=== PATIENT | male | born 1940 | race Caucasian/White ===

== ENCOUNTER 2016-12-18 08:33 | Outpatient (CLI) | payer MEDICARE, OTHER ==
[2015-11-12 17:13] VITALS: BP 127/62
== END 2016-12-18 08:35 ==
LOC: LAB 08:33
PROVIDERS: ATTEND Internal Medicine Cardiovascular Disease
DX: Z51.81 Encounter for therapeutic drug level monitoring (principal); Z79.01 Long term (current) use of anticoagulants; I48.2 Chronic atrial fibrillation
CPT/HCPCS: 36415; 85610

== ENCOUNTER 2017-01-16 08:10 | Outpatient (CLI) | payer MEDICARE, OTHER ==
[2015-11-12 17:13] VITALS: BP 127/62
== END 2017-01-16 08:11 ==
LOC: LAB 08:10
PROVIDERS: ATTEND Internal Medicine Cardiovascular Disease
DX: Z51.81 Encounter for therapeutic drug level monitoring (principal); Z79.01 Long term (current) use of anticoagulants; I48.91 Unspecified atrial fibrillation
CPT/HCPCS: 36415; 85610

== ENCOUNTER 2017-01-21 08:25 | Outpatient (CLI) | payer MEDICARE, OTHER ==
[2015-11-12 17:13] VITALS: BP 127/62
== END 2017-01-21 08:26 ==
LOC: LAB 08:25
PROVIDERS: ATTEND Internal Medicine Cardiovascular Disease
DX: I48.0 Paroxysmal atrial fibrillation (principal)
CPT/HCPCS: 36415; 85610

== ENCOUNTER 2017-02-05 08:08 | Outpatient (CLI) | payer MEDICARE, OTHER ==
[2015-11-12 17:13] VITALS: BP 127/62
== END 2017-02-05 08:10 ==
LOC: LAB 08:08
PROVIDERS: ATTEND Internal Medicine Cardiovascular Disease
DX: I48.0 Paroxysmal atrial fibrillation (principal)
CPT/HCPCS: 36415; 85610

== ENCOUNTER 2017-02-11 08:41 | Outpatient (CLI) | payer MEDICARE, OTHER ==
[2015-11-12 17:13] VITALS: BP 127/62
== END 2017-02-11 08:42 ==
LOC: LAB 08:41
PROVIDERS: ATTEND Internal Medicine Cardiovascular Disease
DX: Z51.81 Encounter for therapeutic drug level monitoring (principal); Z79.01 Long term (current) use of anticoagulants; I48.0 Paroxysmal atrial fibrillation
CPT/HCPCS: 36415; 85610

== ENCOUNTER 2017-02-25 07:18 | Outpatient (CLI) | payer MEDICARE, OTHER ==
[2015-11-12 17:13] VITALS: BP 127/62
[2017-02-25 08:29] LABS: eGFR (African) 42; eGFR (Non-African) 35
== END 2017-02-25 07:20 ==
LOC: LAB 07:18
PROVIDERS: ATTEND Internal Medicine Cardiovascular Disease
DX: E11.65 Type 2 diabetes mellitus with hyperglycemia (principal); N18.3 Chronic kidney disease, stage 3 (moderate); I50.9 Heart failure, unspecified; E78.2 Mixed hyperlipidemia; I12.9 Hypertensive chronic kidney disease with stage 1 through stage 4 chronic kidney disease, or unspecified chronic kidney disease; I25.10 Atherosclerotic heart disease of native coronary artery without angina pectoris; I10 Essential (primary) hypertension; E03.9 Hypothyroidism, unspecified; Z90.5 Acquired absence of kidney
CPT/HCPCS: 36415; 80053; 80061; 85610

== ENCOUNTER 2017-03-11 07:54 | Outpatient (CLI) | payer MEDICARE, OTHER ==
[2015-11-12 17:13] VITALS: BP 127/62
== END 2017-03-11 07:55 ==
LOC: LAB 07:54
PROVIDERS: ATTEND Internal Medicine Cardiovascular Disease
DX: E11.65 Type 2 diabetes mellitus with hyperglycemia (principal); N18.3 Chronic kidney disease, stage 3 (moderate); I50.9 Heart failure, unspecified
CPT/HCPCS: 36415; 85610

== ENCOUNTER 2017-03-26 09:19 | Outpatient (CLI) | payer MEDICARE, OTHER ==
[2015-11-12 17:13] VITALS: BP 127/62
== END 2017-03-26 09:20 ==
LOC: LAB 09:19
PROVIDERS: ATTEND Internal Medicine Cardiovascular Disease
DX: E11.65 Type 2 diabetes mellitus with hyperglycemia (principal); E11.22 Type 2 diabetes mellitus with diabetic chronic kidney disease; N18.3 Chronic kidney disease, stage 3 (moderate); I12.9 Hypertensive chronic kidney disease with stage 1 through stage 4 chronic kidney disease, or unspecified chronic kidney disease; I25.10 Atherosclerotic heart disease of native coronary artery without angina pectoris; I10 Essential (primary) hypertension; E03.9 Hypothyroidism, unspecified
CPT/HCPCS: 36415; 85610

== ENCOUNTER 2017-04-09 10:43 | Outpatient (CLI) | payer MEDICARE, OTHER ==
[2015-11-12 17:13] VITALS: BP 127/62
== END 2017-04-09 10:44 ==
LOC: LAB 10:43
PROVIDERS: ATTEND Internal Medicine Cardiovascular Disease
DX: Z51.81 Encounter for therapeutic drug level monitoring (principal); Z79.01 Long term (current) use of anticoagulants; I48.0 Paroxysmal atrial fibrillation
CPT/HCPCS: 36415; 85610

== ENCOUNTER 2017-05-09 08:28 | Outpatient (CLI) | payer MEDICARE, OTHER ==
[2015-11-12 17:13] VITALS: BP 127/62
== END 2017-05-09 08:30 ==
LOC: LAB 08:28
PROVIDERS: ATTEND Internal Medicine Cardiovascular Disease
DX: I48.0 Paroxysmal atrial fibrillation (principal)
CPT/HCPCS: 36415; 85610

== ENCOUNTER 2017-05-23 08:21 | Outpatient (CLI) | payer MEDICARE, OTHER ==
[2015-11-12 17:13] VITALS: BP 127/62
== END 2017-05-23 08:31 ==
LOC: LAB 08:21
PROVIDERS: ATTEND Internal Medicine Cardiovascular Disease
DX: I48.0 Paroxysmal atrial fibrillation (principal)
CPT/HCPCS: 36415; 85610

== ENCOUNTER → 2017-06-06 | Outpatient (CLI) | payer MEDICARE, OTHER ==
[2015-11-12 17:13] VITALS: BP 127/62
== END ==
LOC: LAB 07:20
PROVIDERS: ATTEND Internal Medicine Cardiovascular Disease
DX: I48.0 Paroxysmal atrial fibrillation (principal)
CPT/HCPCS: 36415; 85610

== ENCOUNTER 2017-06-27 08:36 | Outpatient (CLI) | payer MEDICARE, OTHER ==
[2015-11-12 17:13] VITALS: BP 127/62
== END 2017-06-27 08:37 ==
LOC: LAB 08:36
PROVIDERS: ATTEND Internal Medicine Cardiovascular Disease
DX: I48.0 Paroxysmal atrial fibrillation (principal)
CPT/HCPCS: 36415; 85610

== ENCOUNTER 2017-07-11 09:45 | Outpatient (CLI) | payer MEDICARE, OTHER ==
[2015-11-12 17:13] VITALS: BP 127/62
== END 2017-07-11 09:55 ==
LOC: LAB 09:45
PROVIDERS: ATTEND Internal Medicine Cardiovascular Disease
DX: Z79.01 Long term (current) use of anticoagulants (principal)
CPT/HCPCS: 36415; 85610

== ENCOUNTER 2017-07-31 07:44 | Outpatient (CLI) | payer MEDICARE, OTHER ==
[2015-11-12 17:13] VITALS: BP 127/62
== END 2017-07-31 07:45 ==
LOC: LAB 07:44
PROVIDERS: ATTEND Internal Medicine Cardiovascular Disease
DX: Z79.01 Long term (current) use of anticoagulants (principal)
CPT/HCPCS: 36415; 85610

== ENCOUNTER 2017-08-06 07:33 | Outpatient (CLI) | payer MEDICARE, OTHER ==
[2015-11-12 17:13] VITALS: BP 127/62
== END 2017-08-06 07:34 ==
LOC: LAB 07:33
PROVIDERS: ATTEND Internal Medicine Cardiovascular Disease
DX: Z79.01 Long term (current) use of anticoagulants (principal)
CPT/HCPCS: 36415; 85610

== ENCOUNTER 2017-08-21 08:07 | Outpatient (CLI) | payer MEDICARE, OTHER ==
[2015-11-12 17:13] VITALS: BP 127/62
== END 2017-08-21 08:10 ==
LOC: LAB 08:07
PROVIDERS: ATTEND Internal Medicine Cardiovascular Disease
DX: Z79.01 Long term (current) use of anticoagulants (principal)
CPT/HCPCS: 36415; 85610

== ENCOUNTER 2017-09-03 07:32 | Outpatient (CLI) | payer MEDICARE, OTHER ==
[2015-11-12 17:13] VITALS: BP 127/62
== END 2017-09-03 07:33 ==
LOC: LAB 07:32
PROVIDERS: ATTEND Internal Medicine Cardiovascular Disease
DX: Z79.01 Long term (current) use of anticoagulants (principal)
CPT/HCPCS: 36415; 85610

== ENCOUNTER 2017-09-16 13:31 | Outpatient (CLI) | payer MEDICARE, OTHER ==
[2015-11-12 17:13] VITALS: BP 127/62
[2017-09-16 13:55] LABS: APPEARANCE,URINE Clear (CLEAR); COLOR,URINE Yellow (YELLOW); OCCULT BLOOD,URINE Negative (NEGATIVE); UROBILINOGEN URINE 0.2 Eu (0.2-1.0)
[2017-09-16 14:05] LABS: BASOPHILS % 0.2 (0.0-1.5); EOSINOPHILS % 0.2 % (0.0-6.8); MEAN CORPUSCULAR HEMOGLOBIN 31.4 pg (28.0-34.0); MONOCYTES % 4.4 % (0.0-11.0); NEUTROPHILS # 9.9 # k/uL (1.4-7.7)
[2017-09-16 14:10] LABS: eGFR (African) 39; eGFR (Non-African) 33
== END 2017-09-16 13:32 ==
LOC: LAB 13:31
PROVIDERS: ATTEND Nurse Practitioner Family
DX: I48.2 Chronic atrial fibrillation (principal); Z79.01 Long term (current) use of anticoagulants; N28.9 Disorder of kidney and ureter, unspecified; R42 Dizziness and giddiness
CPT/HCPCS: 36415; 80053; 81002; 84550; 85025; 85610; 87086

== ENCOUNTER 2017-09-18 09:38 | Outpatient (CLI) | payer MEDICARE, OTHER ==
[2015-11-12 17:13] VITALS: BP 127/62
[2017-09-18 10:47] LABS: BASOPHILS % 0.1 (0.0-1.5); EOSINOPHILS % 0.6 % (0.0-6.8); MEAN CORPUSCULAR HEMOGLOBIN 30.9 pg (28.0-34.0); MONOCYTES % 5.7 % (0.0-11.0); NEUTROPHILS # 8.1 # k/uL (1.4-7.7)
[2017-09-18 11:06] LABS: eGFR (African) 42; eGFR (Non-African) 35
== END 2017-09-18 09:40 ==
LOC: LAB 09:38
PROVIDERS: ATTEND Nurse Practitioner Family
DX: N28.9 Disorder of kidney and ureter, unspecified (principal); R71.0 Precipitous drop in hematocrit
CPT/HCPCS: 36415; 80053; 82668; 85025

== ENCOUNTER 2017-10-02 07:40 | Outpatient (CLI) | payer MEDICARE, OTHER ==
[2015-11-12 17:13] VITALS: BP 127/62
== END 2017-10-02 07:42 ==
LOC: LAB 07:40
PROVIDERS: ATTEND Internal Medicine Cardiovascular Disease
DX: Z79.01 Long term (current) use of anticoagulants (principal)
CPT/HCPCS: 36415; 85610

== ENCOUNTER 2017-10-16 08:57 | Outpatient (CLI) | payer MEDICARE, OTHER ==
[2015-11-12 17:13] VITALS: BP 127/62
== END 2017-10-16 11:27 ==
LOC: LAB 08:57
PROVIDERS: ATTEND Internal Medicine Cardiovascular Disease
DX: Z79.01 Long term (current) use of anticoagulants (principal)
CPT/HCPCS: 36415; 85610

== ENCOUNTER 2017-10-20 08:45 | Outpatient (CLI) | payer MEDICARE, OTHER ==
[2015-11-12 17:13] VITALS: BP 127/62
== END 2017-10-20 08:46 ==
LOC: LAB 08:45
PROVIDERS: ATTEND Internal Medicine Cardiovascular Disease
DX: Z79.01 Long term (current) use of anticoagulants (principal)
CPT/HCPCS: 36415; 85610

== ENCOUNTER 2017-10-31 07:42 | Outpatient (CLI) | payer MEDICARE, OTHER ==
[2015-11-12 17:13] VITALS: BP 127/62
[2017-10-31 08:12] LABS: BASOPHILS % 0.5 (0.0-1.5); EOSINOPHILS % 2.5 % (0.0-6.8); MEAN CORPUSCULAR HEMOGLOBIN 29.7 pg (28.0-34.0); MEAN CORPUSCULAR VOLUME 93.3 fl (80.0-100.0); MONOCYTES % 8.4 % (0.0-11.0); NEUTROPHILS # 3.8 # k/uL (1.4-7.7)
[2017-10-31 08:43] LABS: eGFR (African) 42; eGFR (Non-African) 34
== END 2017-10-31 07:43 ==
LOC: LAB 07:42
PROVIDERS: ATTEND Internal Medicine Cardiovascular Disease
DX: E11.65 Type 2 diabetes mellitus with hyperglycemia (principal); Z68.1 Body mass index [BMI] 19.9 or less, adult; N18.3 Chronic kidney disease, stage 3 (moderate); I50.9 Heart failure, unspecified; E78.2 Mixed hyperlipidemia; I12.9 Hypertensive chronic kidney disease with stage 1 through stage 4 chronic kidney disease, or unspecified chronic kidney disease; I25.10 Atherosclerotic heart disease of native coronary artery without angina pectoris; I10 Essential (primary) hypertension; E03.9 Hypothyroidism, unspecified; Z90.5 Acquired absence of kidney; E79.0 Hyperuricemia without signs of inflammatory arthritis and tophaceous disease; Z79.01 Long term (current) use of anticoagulants
CPT/HCPCS: 36415; 80053; 83540; 85025; 85610

== ENCOUNTER 2017-11-14 08:26 | Outpatient (CLI) | payer MEDICARE, OTHER ==
[2015-11-12 17:13] VITALS: BP 127/62
== END 2017-11-14 10:00 ==
LOC: LAB 08:26
PROVIDERS: ATTEND Internal Medicine Cardiovascular Disease
DX: Z79.01 Long term (current) use of anticoagulants (principal)
CPT/HCPCS: 36415; 85610

== ENCOUNTER 2017-11-17 09:33 | Outpatient (CLI) | payer MEDICARE, OTHER ==
[2015-11-12 17:13] VITALS: BP 127/62
== END 2017-11-17 09:34 ==
LOC: LAB 09:33
PROVIDERS: ATTEND Internal Medicine Cardiovascular Disease
DX: Z79.01 Long term (current) use of anticoagulants (principal)
CPT/HCPCS: 36415; 85610

== ENCOUNTER 2017-11-26 09:52 | Outpatient (CLI) | payer MEDICARE, OTHER ==
[2015-11-12 17:13] VITALS: BP 127/62
== END 2017-11-26 10:00 ==
LOC: LAB 09:52
PROVIDERS: ATTEND Internal Medicine Cardiovascular Disease
DX: Z79.01 Long term (current) use of anticoagulants (principal)
CPT/HCPCS: 36415; 85610

== ENCOUNTER 2017-12-03 07:39 | Outpatient (CLI) | payer MEDICARE, OTHER ==
[2015-11-12 17:13] VITALS: BP 127/62
== END 2017-12-03 07:40 ==
LOC: LAB 07:39
PROVIDERS: ATTEND Internal Medicine Cardiovascular Disease
DX: Z79.01 Long term (current) use of anticoagulants (principal)
CPT/HCPCS: 36415; 85610

== ENCOUNTER 2017-12-31 07:25 | Outpatient (CLI) | payer MEDICARE, OTHER ==
[2015-11-12 17:13] VITALS: BP 127/62
[2017-12-31 07:59] LABS: BASOPHILS % 0.5 (0.0-1.5); EOSINOPHILS % 1.4 % (0.0-6.8); MEAN CORPUSCULAR HEMOGLOBIN 30.6 pg (28.0-34.0); MEAN CORPUSCULAR VOLUME 99.7 fl (80.0-100.0); MONOCYTES % 8.4 % (0.0-11.0); NEUTROPHILS # 3.4 # k/uL (1.4-7.7)
[2017-12-31 16:49] LABS: eGFR (African) 50; eGFR (Non-African) 42
== END 2017-12-31 07:26 ==
LOC: LAB 07:25
PROVIDERS: ATTEND Internal Medicine Nephrology
DX: Z79.01 Long term (current) use of anticoagulants (principal); E11.65 Type 2 diabetes mellitus with hyperglycemia; N18.3 Chronic kidney disease, stage 3 (moderate); I50.9 Heart failure, unspecified; E78.2 Mixed hyperlipidemia; I12.9 Hypertensive chronic kidney disease with stage 1 through stage 4 chronic kidney disease, or unspecified chronic kidney disease; I25.10 Atherosclerotic heart disease of native coronary artery without angina pectoris; I10 Essential (primary) hypertension; E03.9 Hypothyroidism, unspecified; Z90.5 Acquired absence of kidney; E79.0 Hyperuricemia without signs of inflammatory arthritis and tophaceous disease
CPT/HCPCS: 36415; 80053; 83540; 85025; 85610

== ENCOUNTER 2018-01-13 07:09 | Outpatient (CLI) | payer MEDICARE, OTHER ==
[2015-11-12 17:13] VITALS: BP 127/62
[2018-01-13 08:34] LABS: BASOPHILS % 0.9 (0.0-1.5); EOSINOPHILS % 1.5 % (0.0-6.8); MEAN CORPUSCULAR HEMOGLOBIN 30.8 pg (28.0-34.0); MEAN CORPUSCULAR VOLUME 96.9 fl (80.0-100.0); MONOCYTES % 8.1 % (0.0-11.0); NEUTROPHILS # 2.7 # k/uL (1.4-7.7)
== END 2018-01-13 07:10 ==
LOC: LAB 07:09
PROVIDERS: ATTEND Nurse Practitioner
DX: R93.8 Abnormal findings on diagnostic imaging of other specified body structures (principal)
CPT/HCPCS: 36415; 82784; 85025

== ENCOUNTER 2018-01-14 08:04 | Outpatient (CLI) | payer MEDICARE, OTHER ==
[2015-11-12 17:13] VITALS: BP 127/62
== END 2018-01-14 08:05 ==
LOC: LAB 08:04
PROVIDERS: ATTEND Internal Medicine Cardiovascular Disease
DX: Z79.01 Long term (current) use of anticoagulants (principal)
CPT/HCPCS: 36415; 85610

== ENCOUNTER 2018-01-26 07:14 | Outpatient (CLI) | payer MEDICARE, OTHER ==
[2015-11-12 17:13] VITALS: BP 127/62
== END 2018-01-26 07:15 ==
LOC: LAB 07:14
PROVIDERS: ATTEND Internal Medicine Cardiovascular Disease
DX: Z79.01 Long term (current) use of anticoagulants (principal)
CPT/HCPCS: 36415; 85610

== ENCOUNTER 2018-02-10 07:37 | Outpatient (CLI) | payer MEDICARE, OTHER ==
[2015-11-12 17:13] VITALS: BP 127/62
== END 2018-02-10 07:45 ==
LOC: LAB 07:37
PROVIDERS: ATTEND Internal Medicine Cardiovascular Disease
DX: Z79.01 Long term (current) use of anticoagulants (principal)
CPT/HCPCS: 36415; 85610

== ENCOUNTER 2018-02-16 08:23 | Outpatient (CLI) | payer MEDICARE, OTHER ==
[2015-11-12 17:13] VITALS: BP 127/62
== END 2018-02-16 08:24 ==
LOC: LAB 08:23
PROVIDERS: ATTEND Internal Medicine Cardiovascular Disease
DX: Z79.01 Long term (current) use of anticoagulants (principal)
CPT/HCPCS: 36415; 85610

== ENCOUNTER 2018-02-23 14:13 | Outpatient (CLI) | payer MEDICARE, OTHER ==
[2015-11-12 17:13] VITALS: BP 127/62
== END 2018-02-23 14:14 ==
LOC: LAB 14:13
PROVIDERS: ATTEND Internal Medicine Cardiovascular Disease
DX: Z79.01 Long term (current) use of anticoagulants (principal)
CPT/HCPCS: 36415; 85610

== ENCOUNTER 2018-03-10 09:56 | Outpatient (CLI) | payer MEDICARE, OTHER ==
[2015-11-12 17:13] VITALS: BP 127/62
== END 2018-03-10 10:00 ==
LOC: LAB 09:56
PROVIDERS: ATTEND Internal Medicine Cardiovascular Disease
DX: Z79.01 Long term (current) use of anticoagulants (principal)
CPT/HCPCS: 36415; 85610

== ENCOUNTER 2018-03-31 08:15 | Outpatient (CLI) | payer MEDICARE, OTHER ==
[2015-11-12 17:13] VITALS: BP 127/62
== END 2018-03-31 08:16 ==
LOC: LAB 08:15
PROVIDERS: ATTEND Internal Medicine Cardiovascular Disease
DX: Z79.01 Long term (current) use of anticoagulants (principal)
CPT/HCPCS: 36415; 85610

== ENCOUNTER 2018-04-14 07:25 | Outpatient (CLI) | payer MEDICARE, OTHER ==
[2015-11-12 17:13] VITALS: BP 127/62
== END 2018-04-14 07:26 ==
LOC: LAB 07:25
PROVIDERS: ATTEND Internal Medicine Cardiovascular Disease
DX: Z79.01 Long term (current) use of anticoagulants (principal)
CPT/HCPCS: 36415; 85610

== ENCOUNTER 2018-04-28 07:52 | Outpatient (CLI) | payer MEDICARE, OTHER ==
[2015-11-12 17:13] VITALS: BP 127/62
== END 2018-04-28 07:53 ==
LOC: LAB 07:52
PROVIDERS: ATTEND Internal Medicine Cardiovascular Disease
DX: Z79.01 Long term (current) use of anticoagulants (principal)
CPT/HCPCS: 36415; 85610

== ENCOUNTER 2018-05-19 08:03 | Outpatient (CLI) | payer MEDICARE, OTHER ==
[2015-11-12 17:13] VITALS: BP 127/62
== END 2018-05-19 08:05 ==
LOC: LAB 08:03
PROVIDERS: ATTEND Internal Medicine Cardiovascular Disease
DX: Z79.01 Long term (current) use of anticoagulants (principal)
CPT/HCPCS: 36415; 85610

== ENCOUNTER 2018-06-16 07:25 | Outpatient (CLI) | payer MEDICARE, OTHER ==
[2015-11-12 17:13] VITALS: BP 127/62
== END 2018-06-16 07:30 ==
LOC: LAB 07:25
PROVIDERS: ATTEND Internal Medicine Cardiovascular Disease
DX: Z79.01 Long term (current) use of anticoagulants (principal)
CPT/HCPCS: 36415; 85610

== ENCOUNTER 2018-06-30 08:00 | Outpatient (CLI) | payer MEDICARE, OTHER ==
[2015-11-12 17:13] VITALS: BP 127/62
[2018-06-30 08:17] LABS: BASOPHILS % 0.4 (0.0-1.5); MEAN CORPUSCULAR HEMOGLOBIN 34.7 pg (28.0-34.0); MEAN CORPUSCULAR VOLUME 104.7 fl (80.0-100.0); MONOCYTES % 8.5 % (0.0-11.0); NEUTROPHILS # 3.3 # k/uL (1.4-7.7)
[2018-06-30 08:48] LABS: eGFR (African) 47; eGFR (Non-African) 39
== END 2018-06-30 08:03 ==
LOC: LAB 08:00
PROVIDERS: ATTEND Internal Medicine Cardiovascular Disease
DX: E11.65 Type 2 diabetes mellitus with hyperglycemia (principal); N18.3 Chronic kidney disease, stage 3 (moderate); I50.9 Heart failure, unspecified; E78.2 Mixed hyperlipidemia; I12.9 Hypertensive chronic kidney disease with stage 1 through stage 4 chronic kidney disease, or unspecified chronic kidney disease; I25.10 Atherosclerotic heart disease of native coronary artery without angina pectoris; I10 Essential (primary) hypertension; E03.9 Hypothyroidism, unspecified; Z90.5 Acquired absence of kidney; E79.0 Hyperuricemia without signs of inflammatory arthritis and tophaceous disease
CPT/HCPCS: 36415; 80053; 80061; 85025; 85610

== ENCOUNTER 2018-07-14 09:27 | Outpatient (CLI) | payer MEDICARE, OTHER ==
[2015-11-12 17:13] VITALS: BP 127/62
== END 2018-07-14 13:53 ==
LOC: LAB 09:27
PROVIDERS: ATTEND Internal Medicine Cardiovascular Disease
DX: Z79.01 Long term (current) use of anticoagulants (principal)
CPT/HCPCS: 36415; 85610

== ENCOUNTER 2018-08-11 15:24 | Inpatient (IN) | payer MEDICARE, OTHER ==
[2018-08-11 16:09] VITALS: BMI 17.8
[2018-08-11] MEDS ORDERED: ALBUTEROL 90MCG/PUFF INHALER IH PRN (18:29)
[2018-08-11] MEDS: IPRATROPIUM/ALBUTEROL SULFATE 3 ML AMPUL.NEB NEB SCH (18:57)
--- NOTE | 2018-08-11 19:00 | History and Physical Report ---
History of Present Illnes - History of Present Illness Reason for Visit: Pneumonia, COPD History of Present Illness: This is a 77 year old male admitted from [facility] after admission on August 01, 2018 and discharge today after being admitted for treatment of a left lower lobe pneumonia. He was noted to have an increased effusion on his left lung and underwent a thoracentesis, which proved this to be transudataive. He was initially treated with Zosyn and Vancomycin and discharged to our facility with cefuroxime 500 mg po BID, and a steroid taper of 40 mg daily for 3 days, and then 10 mg x 3 days. He is feeling better, but needs to have some therapy so taht he can return to home. - Past Medical History Cardiac: AFIB, CAD, CHF, HTN, HI, Hyperlipidemia, Other (Ischemic cardiomyopathy) Gastrointestinal: GERD Heme/Onc: Other Renal/: Chronic renal insuff Endocrine: Hypothyroidism - Past Surgical History Past Surgical History: Other (Left nephrectomy 1961, pacemaker/defibrillator placement, cardiac stents 2003, ) - Past Social History Smoke: Quit Alcohol: Occassional Drugs: None Lives: With Family Domestic Violence: Negative - Health Maintenance Health Maintenance: Cholesterol Influenza Vaccine: Current for this Influenza Season Pneumonia Vaccine: Yes Resuscitation Status: Resusciation Status Resuscitation Status Do Not Resuscitate Review of Systems - Review of Systems Constitutional: Weakness, Malaise. negative: Fever, Chills Eyes: negative: pain, vision change ENT: negative: Ear Pain Respiratory: Cough, Shortness of Breath. negative: Hemoptysis Cardiovascular: negative: Chest Pain, Palpitations Gastrointestinal: negative: Nausea, Vomiting Genitourinary: negative: Dysuria, Frequency Musculoskeletal: negative: Neck Pain, Shoulder Pain Skin: negative: Rash Neurological: Weakness. negative: Change in Speech, Confusion - Medications/Allergies Allergies/Adverse Reactions: Allergies Allergy/AdvReac Type Severity Reaction Status Date / Time iodine Allergy Severe Anaphylaxis Verified 11/12/15 09:01 Home Medications: Home Medications Cefuroxime Axetil [Ceftin] 500 mg PO BID 08/11/18 Furosemide [Lasix] 20 mg PO DAILY 08/11/18 Ipratropium/Albuterol Sulfate [Iprat-Albut 0.5-3(2.5) mg/3 ml] 3 ml PO Q6 08/11/18 Isosorbide Dinit/Hydralazine [Bidil Tablet] 1 tab PO TID 08/11/18 Nystatin 500,000 Unit/5 ml Udc [Nilstat] 5 ml PO QID 08/11/18 Warfarin Sodium [Coumadin] 5 mg PO TH 08/11/18 predniSONE [Deltasone] 20 mg PO DAILY 08/11/18 Current Inpatient Medications: Current Inpatient Medications Albuterol Sulfate (Ventolin Hfa) 2 puff IH PRN PRN PRN Reason: Bronchodialation Albuterol/Ipratropium (Duoneb) 3 ml NEB Q6H [facility] Allopurinol (Zyloprim) 100 mg PO DAILY [facility] Aspirin (Aspirin) 81 mg PO DAILY [facility] Carvedilol (Coreg) 6.25 mg PO DAILY [facility] Cefuroxime Axetil (Ceftin) 500 mg PO BID [facility] Stop: 08/21/18 20:59 Furosemide (Lasix) 20 mg PO DAILY [facility] Hydralazine HCl (Apresoline) 37.5 mg PO TID [facility] Isosorbide Mononitrate (Imdur) 30 mg PO DAILY [facility] Levothyroxine Sodium (Synthroid) 50 mcg PO 0700 [facility] Loratadine/Pseudoephedrine Sulfate (Claritin-D 12 Hour Tablet) 1 each PO BID [facility] Miscellaneous (Non Form) 1 each PO TID [facility] Nystatin (Nilstat) 500,000 unit PO QID [facility] Pantoprazole Sodium (Protonix) 40 mg PO 0700 [facility] Prednisone (Deltasone) 40 mg PO DAILY [facility] Stop: 08/15/18 06:00 Prednisone (Deltasone) 10 mg PO DAILY [facility] Stop: 08/17/18 18:00 Simvastatin (Zocor) 20 mg PO [facility] Warfarin Sodium (Coumadin) 2.5 mg PO [id number] [facility] Warfarin Sodium (Coumadin) 5 mg PO [facility] Warfarin Sodium (Coumadin) 5 mg PO [facility] Exam - Exam Vital Signs: Vital Signs (72 hours) 08/11/18 15:38 Temperature 97.1 F L Pulse Rate [ 94 H Left Pulse ox] Respiratory 20 Rate Blood Pressure 130/70 [Left Arm] O2 Sat by Pulse 94 Oximetry General: Alert, Oriented to Person, Oriented to Place, Oriented to Time, Cooperative, Mild distress HEENT: Atraumatic, PERRLA, EOMI Neck: No: Stridor, Rigidity Lungs: Respiratory Distress (mild), Wheezes, Prolonged Expiration, Decreased Air Movement Cardiovascular: Irregularly Irregular Murmur: No: Systolic Murmur Abdomen: Normal bowel sounds, Soft, No tenderness Genitourinary: No: Right Inguinal Hernia, Left Inguinal Hernia Male Genitourinary: No: Other Female Genitourinary: No: Other Integumentary: Normal, [place], Warm, Dry Extremities: No clubbing, No cyanosis, No edema Neurological: Normal speech, Generalized Weakness Psych/Mental Status: Mental status NL Assessment/Plan - Assessment/Plan (1) Left lower lobe pneumonia Status: Acute Current Visit: Yes Qualifiers: Pneumonia type: due to unspecified organism Qualified Code(s): J18.1 - Lobar pneumonia, unspecified organism Assessment: Continue cefuroxime (2) Pleural effusion Status: Acute Current Visit: Yes Assessment: Has had thoracoscopy and is breathing better (3) Atrial fibrillation Status: Acute Current Visit: Yes Assessment: Currently on carvedilol and warfarin Plan: Follow INR, continue warfarin (4) Squamous cell carcinoma of left lung Status: Acute Current Visit: Yes Assessment: S/P radiation therapy (5) Renal insufficiency Status: Acute Current Visit: Yes Assessment: Secondary to previous nephrectomy for benign disease (6) Congestive heart failure Status: Acute Current Visit: Yes Assessment: Stable on current dose of lasix, carvedilol (7) CAD (coronary artery disease), [place] coronary artery Status: Acute Current Visit: Yes Assessment: No evidence of current ischemia (8) Hypothyroidism Status: Acute Current Visit: Yes Assessment: Continue current dose of levothyroxine VTE Assessment - RISK FACTOR SCORE VTE RISK FACTOR SCORES: AGE OVER 60 YEARS, ACUTE RESPIRATORY FAILURE/SEVERE COPD - RISK VTE MODERATE RISK: SCORE OF 2 (RISK PROXIMAL DVT 2-4%) PROPHYAXIS NEEDED (On warfarin)
[2018-08-11] MEDS: NYSTATIN 500,000 UNIT/5 ML UDC PO SCH (20:05)
[2018-08-11] MEDS: SIMVASTATIN 20 MG TABLET PO SCH (20:05)
[2018-08-11] MEDS: CEFUROXIME AXETIL 250 MG TABLET PO SCH (20:06)
[2018-08-11] MEDS: LORATADINE/PSEUDOEPHEDRINE 1 EACH TAB.ER.12H PO SCH (20:06)
[2018-08-12] MEDS: IPRATROPIUM/ALBUTEROL SULFATE 3 ML AMPUL.NEB NEB SCH ×4 (01:09→18:03)
[2018-08-12] MEDS ORDERED: LEVOTHYROXINE SODIUM 50 MCG TABLET ONE (02:45)
[2018-08-12] MEDS ORDERED: ASPIRIN EC 81 MG TABLET.DR ONE (02:54)
[2018-08-12] MEDS: PANTOPRAZOLE SODIUM 40 MG TABLET PO SCH (06:04)
[2018-08-12] MEDS: LEVOTHYROXINE SODIUM 25 MCG TABLET PO SCH (06:06)
[2018-08-12] MEDS: LORATADINE/PSEUDOEPHEDRINE 1 EACH TAB.ER.12H PO SCH ×2 (09:16→19:59)
[2018-08-12] MEDS: CEFUROXIME AXETIL 250 MG TABLET PO SCH ×2 (09:16→19:59)
[2018-08-12] MEDS: NYSTATIN 500,000 UNIT/5 ML UDC PO SCH ×4 (09:17→19:59)
[2018-08-12] MEDS: HYDRALAZINE HCL 25 MG TABLET PO SCH ×3 (09:18→17:58)
[2018-08-12] MEDS: CARVEDILOL 6.25 MG TABLET PO SCH (09:18)
[2018-08-12] MEDS: ASPIRIN 81 MG CHEW TAB PO SCH (09:18)
[2018-08-12] MEDS: predniSONE 20 MG TABLET PO SCH (09:19)
[2018-08-12] MEDS: ISOSORBIDE MONONITRATE 30 MG TAB.ER.24H PO SCH (09:19)
[2018-08-12] MEDS: FUROSEMIDE 20 MG TABLET PO SCH (09:20)
[2018-08-12] MEDS: ALLOPURINOL 100 MG TABLET PO SCH (09:20)
[2018-08-12] MEDS ORDERED: WARFARIN SODIUM 5 MG TABLET PO ONE (11:13)
[2018-08-12] MEDS: POLYETHYLENE GLYCOL 3350 17 GM POWD.PACK PO SCH (11:42)
[2018-08-12 15:11] LABS: BASO % 0.1 % (0.0-1.5); EOS % 0.1 % (0.0-6.8); LYMPH ABS # 0.61 thou/uL (0.60-4.00); MCH. 31.8 pg (28.0-34.0); MCV 100.4 fL (80.0-100.0); MONOCYTE % 5.2 % (0.0-11.0); MONOCYTE ABS # 0.46 thou/uL (0.00-0.90); PLATELET COUNT 238 thou/uL (130-400)
[2018-08-12] MEDS: Non-Formulary 1 EACH PO SCH ×3 (16:56→17:58)
[2018-08-12] MEDS: WARFARIN SODIUM 2.5 MG TABLET PO SCH (17:55)
[2018-08-12] MEDS: SIMVASTATIN 20 MG TABLET PO SCH (19:59)
[2018-08-13] MEDS: IPRATROPIUM/ALBUTEROL SULFATE 3 ML AMPUL.NEB NEB SCH ×4 (02:30→18:51)
[2018-08-13] MEDS: LEVOTHYROXINE SODIUM 25 MCG TABLET PO SCH (06:39)
[2018-08-13] MEDS: PANTOPRAZOLE SODIUM 40 MG TABLET PO SCH (06:39)
[2018-08-13] MEDS: ALLOPURINOL 100 MG TABLET PO SCH (08:01)
[2018-08-13] MEDS: NYSTATIN 500,000 UNIT/5 ML UDC PO SCH ×4 (08:01→20:00)
[2018-08-13] MEDS: FUROSEMIDE 20 MG TABLET PO SCH (08:02)
[2018-08-13] MEDS: ASPIRIN 81 MG CHEW TAB PO SCH (08:02)
[2018-08-13] MEDS: HYDRALAZINE HCL 25 MG TABLET PO SCH ×3 (08:02→17:21)
[2018-08-13] MEDS: ISOSORBIDE MONONITRATE 30 MG TAB.ER.24H PO SCH (08:02)
[2018-08-13] MEDS: LORATADINE/PSEUDOEPHEDRINE 1 EACH TAB.ER.12H PO SCH ×2 (08:02→20:00)
[2018-08-13] MEDS: CEFUROXIME AXETIL 250 MG TABLET PO SCH ×2 (08:02→20:00)
[2018-08-13] MEDS: CARVEDILOL 6.25 MG TABLET PO SCH (08:02)
[2018-08-13] MEDS: predniSONE 20 MG TABLET PO SCH (08:02)
[2018-08-13] MEDS: Non-Formulary 1 EACH PO SCH ×3 (08:03→17:21)
[2018-08-13] MEDS: POLYETHYLENE GLYCOL 3350 17 GM POWD.PACK PO SCH (10:59)
[2018-08-13] MEDS: SIMVASTATIN 20 MG TABLET PO SCH (20:00)
[2018-08-14] MEDS: IPRATROPIUM/ALBUTEROL SULFATE 3 ML AMPUL.NEB NEB SCH ×4 (01:07→18:04)
[2018-08-14] MEDS: LEVOTHYROXINE SODIUM 25 MCG TABLET PO SCH (06:02)
[2018-08-14] MEDS: PANTOPRAZOLE SODIUM 40 MG TABLET PO SCH (06:02)
[2018-08-14] MEDS: CEFUROXIME AXETIL 250 MG TABLET PO SCH ×2 (08:32→20:00)
[2018-08-14] MEDS: LORATADINE/PSEUDOEPHEDRINE 1 EACH TAB.ER.12H PO SCH ×2 (08:32→20:00)
[2018-08-14] MEDS: HYDRALAZINE HCL 25 MG TABLET PO SCH ×3 (08:33→17:53)
[2018-08-14] MEDS: CARVEDILOL 6.25 MG TABLET PO SCH (08:34)
[2018-08-14] MEDS: predniSONE 20 MG TABLET PO SCH (08:34)
[2018-08-14] MEDS: ASPIRIN 81 MG CHEW TAB PO SCH (08:34)
[2018-08-14] MEDS: FUROSEMIDE 20 MG TABLET PO SCH (08:35)
[2018-08-14] MEDS: ISOSORBIDE MONONITRATE 30 MG TAB.ER.24H PO SCH (08:35)
[2018-08-14] MEDS: ALLOPURINOL 100 MG TABLET PO SCH (08:36)
[2018-08-14] MEDS: Non-Formulary 1 EACH PO SCH ×3 (08:36→17:54)
[2018-08-14] MEDS: NYSTATIN 500,000 UNIT/5 ML UDC PO SCH ×4 (08:36→20:00)
[2018-08-14] MEDS ORDERED: WARFARIN SODIUM 5 MG TABLET PO ONE (10:06)
[2018-08-14] MEDS: POLYETHYLENE GLYCOL 3350 17 GM POWD.PACK PO SCH (11:01)
[2018-08-14] MEDS: WARFARIN SODIUM 2.5 MG TABLET PO SCH (17:54)
[2018-08-14] MEDS: SIMVASTATIN 20 MG TABLET PO SCH (20:00)
[2018-08-15] MEDS ORDERED: predniSONE 10 MG TABLET PO ONE (00:30)
[2018-08-15] MEDS: IPRATROPIUM/ALBUTEROL SULFATE 3 ML AMPUL.NEB NEB SCH ×4 (01:14→18:35)
[2018-08-15] MEDS: LEVOTHYROXINE SODIUM 25 MCG TABLET PO SCH (06:00)
[2018-08-15] MEDS: PANTOPRAZOLE SODIUM 40 MG TABLET PO SCH (06:00)
[2018-08-15] MEDS: FUROSEMIDE 20 MG TABLET PO SCH (09:04)
[2018-08-15] MEDS: predniSONE 10 MG TABLET PO SCH (09:04)
[2018-08-15] MEDS: CARVEDILOL 6.25 MG TABLET PO SCH (09:04)
[2018-08-15] MEDS: ALLOPURINOL 100 MG TABLET PO SCH (09:04)
[2018-08-15] MEDS: ISOSORBIDE MONONITRATE 30 MG TAB.ER.24H PO SCH (09:04)
[2018-08-15] MEDS: HYDRALAZINE HCL 25 MG TABLET PO SCH ×3 (09:05→17:24)
[2018-08-15] MEDS: ASPIRIN 81 MG CHEW TAB PO SCH (09:05)
[2018-08-15] MEDS: NYSTATIN 500,000 UNIT/5 ML UDC PO SCH ×4 (09:05→20:27)
[2018-08-15] MEDS: CEFUROXIME AXETIL 250 MG TABLET PO SCH ×2 (09:08→20:27)
[2018-08-15] MEDS: LORATADINE/PSEUDOEPHEDRINE 1 EACH TAB.ER.12H PO SCH ×2 (09:12→20:27)
[2018-08-15] MEDS: Non-Formulary 1 EACH PO SCH ×3 (09:15→17:05)
[2018-08-15] MEDS: POLYETHYLENE GLYCOL 3350 17 GM POWD.PACK PO SCH (10:57)
[2018-08-15] MEDS ORDERED: WARFARIN SODIUM 5 MG TABLET PO ONE (17:01)
[2018-08-15] MEDS ORDERED: WARFARIN SODIUM 5 MG TABLET PO SCH ×2 (18:00)
[2018-08-15] MEDS: SIMVASTATIN 20 MG TABLET PO SCH (20:27)
[2018-08-16] MEDS: IPRATROPIUM/ALBUTEROL SULFATE 3 ML AMPUL.NEB NEB SCH ×4 (00:26→18:30)
[2018-08-16] MEDS: PANTOPRAZOLE SODIUM 40 MG TABLET PO SCH (06:25)
[2018-08-16] MEDS: LEVOTHYROXINE SODIUM 25 MCG TABLET PO SCH (06:25)
[2018-08-16] MEDS: HYDRALAZINE HCL 25 MG TABLET PO SCH ×3 (08:36→18:13)
[2018-08-16] MEDS: predniSONE 10 MG TABLET PO SCH (08:37)
[2018-08-16] MEDS: CARVEDILOL 6.25 MG TABLET PO SCH (08:37)
[2018-08-16] MEDS: FUROSEMIDE 20 MG TABLET PO SCH (08:38)
[2018-08-16] MEDS: ISOSORBIDE MONONITRATE 30 MG TAB.ER.24H PO SCH (08:38)
[2018-08-16] MEDS: NYSTATIN 500,000 UNIT/5 ML UDC PO SCH ×4 (08:38→20:05)
[2018-08-16] MEDS: ALLOPURINOL 100 MG TABLET PO SCH (08:39)
[2018-08-16] MEDS: Non-Formulary 1 EACH PO SCH ×3 (08:39→18:12)
[2018-08-16] MEDS: CEFUROXIME AXETIL 250 MG TABLET PO SCH ×2 (08:41→20:05)
[2018-08-16] MEDS: ASPIRIN 81 MG CHEW TAB PO SCH (08:41)
[2018-08-16] MEDS: LORATADINE/PSEUDOEPHEDRINE 1 EACH TAB.ER.12H PO SCH ×2 (08:41→20:05)
[2018-08-16] MEDS: MAGNESIUM HYDROXIDE 400 MG/5 ML 30ML UDC PO PRN (09:28)
[2018-08-16] MEDS: POLYETHYLENE GLYCOL 3350 17 GM POWD.PACK PO SCH (11:00)
[2018-08-16] MEDS: WARFARIN SODIUM 5 MG TABLET PO SCH (18:14)
[2018-08-16] MEDS ORDERED: WARFARIN SODIUM 5 MG TABLET PO ONE (19:11)
[2018-08-16] MEDS ORDERED: BISACODYL 10 MG SUPP.RECT RC ONE (19:13)
[2018-08-16] MEDS: SIMVASTATIN 20 MG TABLET PO SCH (20:06)
[2018-08-16] MEDS: TAMSULOSIN HCL 0.4 MG CAP.ER.24H PO SCH (20:32)
[2018-08-17] MEDS: IPRATROPIUM/ALBUTEROL SULFATE 3 ML AMPUL.NEB NEB SCH ×4 (01:36→18:13)
[2018-08-17] MEDS: LEVOTHYROXINE SODIUM 25 MCG TABLET PO SCH (06:07)
[2018-08-17] MEDS: PANTOPRAZOLE SODIUM 40 MG TABLET PO SCH (06:07)
[2018-08-17 06:31] LABS: APPEARANCE,URINE CLOUDY (CLEAR); COLOR,URINE YELLOW (YELLOW); OCCULT BLOOD,URINE 1+ (NEGATIVE); PH URINE 7.5 (5.0 - 8.0); UROBILINOGEN URINE 0.2 Eu (0.2-1.0)
[2018-08-17] MEDS: CEFUROXIME AXETIL 250 MG TABLET PO SCH ×2 (08:25→19:25)
[2018-08-17] MEDS: LORATADINE/PSEUDOEPHEDRINE 1 EACH TAB.ER.12H PO SCH ×2 (08:25→19:27)
[2018-08-17] MEDS: ASPIRIN 81 MG CHEW TAB PO SCH (08:27)
[2018-08-17] MEDS: CARVEDILOL 6.25 MG TABLET PO SCH (08:27)
[2018-08-17] MEDS: ISOSORBIDE MONONITRATE 30 MG TAB.ER.24H PO SCH (08:27)
[2018-08-17] MEDS: ALLOPURINOL 100 MG TABLET PO SCH (08:28)
[2018-08-17] MEDS: Non-Formulary 1 EACH PO SCH ×3 (08:28→17:58)
[2018-08-17] MEDS: FUROSEMIDE 20 MG TABLET PO SCH (08:28)
[2018-08-17] MEDS: predniSONE 10 MG TABLET PO SCH (08:29)
[2018-08-17] MEDS: HYDRALAZINE HCL 25 MG TABLET PO SCH ×3 (08:34→17:58)
[2018-08-17] MEDS: NYSTATIN 500,000 UNIT/5 ML UDC PO SCH ×4 (08:34→19:25)
--- NOTE | 2018-08-17 09:28 | Inpatient Progress Note ---
Subjective - Required Recertification Statement I anticipate X number of days because-include discharge plan: 7 - Review of Systems Events since last encounter: Justus had some difficulty urinating over the weekend. They were unable to place a catheter, and Flomax was started. He is feeling better this morning, but did not sleep well due to frequency of urination. He is doing well with therapy. He is able to walk all the way to the therapy room for therapy. General: Fatigue. Denies: Chills, Night Sweats HEENT: Denies: Head Aches Pulmonary: Dyspnea (improved) Cardiovascular: Denies: Chest Pain Gastrointestinal: Constipation. Denies: Nausea, Vomiting Genitourinary: Frequency, Retention Musculoskeletal: Denies: Neck Pain, Shoulder Pain Neurological: Weakness. Denies: Incoordination, Change in Speech Objective - Exam Vitals and I&O: Vital Signs Temp 98 F 08/17/18 08:36 Pulse 80 08/17/18 08:36 Resp 18 08/17/18 08:36 BP 121/62 08/17/18 08:36 Pulse Ox 98 08/17/18 08:36 Intake & Output 08/16/18 08/16/18 08/17/18 11:59 23:59 11:59 Intake Total 480 1140 800 Balance 480 1140 800 Intake: Oral 480 1140 800 Other: Voiding Method Toilet Toilet # Voids 25 10 3 General: Alert, Oriented to Person, Oriented to Place, Oriented to Time, Cooperative, No acute distress HEENT: Atraumatic, PERRLA, EOMI Neck: Supple, No JVD Lungs: Decreased Air Movement (but improved from admission) Cardiovascular: Regular rate Abdomen: Normal bowel sounds, Soft, No tenderness, No hepatospenomegaly Extremities: No clubbing, No cyanosis, No edema Skin: Normal, [place], Warm Neurological: Normal speech Psych/Mental Status: Mental status NL - Results Results: Laboratory Results WBC Comment 8.90 thou/uL (4.00-12.00) 08/12/18 Unknown RBC 3.90 mil/uL (3.80-5.80) 08/12/18 Unknown Hemoglobin (Send Out) 12.4 g/dL (12.0-18.0) 08/12/18 Unknown Hct (Send Out) 39.2 % (37.0-53.0) 08/12/18 Unknown MCV (Send Out) 100.4 fL (80.0-100.0) H 08/12/18 Unknown MCH 31.8 pg (28.0-34.0) 08/12/18 Unknown MCHC (Send Out) 31.7 g/dL (30.0-36.0) 08/12/18 Unknown RDW Coeff of Nic 12.8 % (11.3-14.7) 08/12/18 Unknown Plt Count 238 thou/uL (130-400) 08/12/18 Unknown Absolute Lymphs (auto) 0.61 thou/uL (0.60-4.00) 08/12/18 Unknown Absolute Monos (auto) 0.46 thou/uL (0.00-0.90) 08/12/18 Unknown Absolute Basos (auto) 0.01 thou/uL (0.00-0.50) 08/12/18 Unknown Neutrophils % 87.9 % (39.0-79.0) H 08/12/18 Unknown Absolute Neutrophils 7.82 thou/uL (1.50-7.70) H 08/12/18 Unknown Lymphocytes 6.8 % (16.0-50.0) L 08/12/18 Unknown Monocytes 5.2 % (0.0-11.0) 08/12/18 Unknown Absolute Eosinophils 0.01 thou/uL (0.00-0.60) 08/12/18 Unknown Basophilia % 0.1 % (0.0-1.5) 08/12/18 Unknown Eosinophil Count 0.1 % (0.0-6.8) 08/12/18 Unknown PT 14.5 Seconds (9.4-11.6) H 08/17/18 07:05 INR 1.38 (0.9-1.2) H 08/17/18 07:05 Sodium 146 mmol/L (136-145) H 08/12/18 Unknown Potassium 4.3 mmol/L (3.5-5.1) 08/12/18 Unknown Chloride 102 mmol/L (98-107) 08/12/18 Unknown Total Carbon Dioxide 34 mmol/L (22-29) H 08/12/18 Unknown BUN 53 mg/dL (6-20) H 08/12/18 Unknown Creatinine 1.59 mg/dL (0.40-1.50) H 08/12/18 Unknown Estimated GFR mL/min 46 L 08/12/18 Unknown Glucose 145 mg/dL (70-99 Fasting) H 08/12/18 Unknown Calcium 9.1 mg/dL (8.6-10.2) 08/12/18 Unknown Total Bilirubin <0.3 mg/dL (<1.2) 08/12/18 Unknown AST 16 U/L (<40) 08/12/18 Unknown ALT 27 U/L (<42) 08/12/18 Unknown Alkaline Phosphatase 49 U/L (40-129) 08/12/18 Unknown Total Protein 5.0 g/dL (6.0-8.5) L 08/12/18 Unknown Albumin 2.9 g/dL (3.5-5.2) L 08/12/18 Unknown Urine Color Yellow (YELLOW) 08/16/18 18:42 Urine Appearance Cloudy (CLEAR) 08/16/18 18:42 Urine pH 7.5 (5.0 - 8.0) 08/16/18 18:42 Ur Specific [place] 1.020 (1.010-1.030) 08/16/18 18:42 Urine Protein 1+ mg/dL (NEGATIVE) H 08/16/18 18:42 Urine Ketones Negative mg/dL (NEGATIVE) 08/16/18 18:42 Urine Occult Blood 1+ (NEGATIVE) H 08/16/18 18:42 Urine Nitrite Negative (NEGATIVE) 08/16/18 18:42 Urine Bilirubin Negative (NEGATIVE) 08/16/18 18:42 Urine Urobilinogen 0.2 Eu (0.2-1.0) 08/16/18 18:42 Ur Leukocyte Esterase Negative (NEGATIVE) 08/16/18 18:42 Urine Glucose Negative mg/dL (NEGATIVE) 08/16/18 18:42 Assessment/Plan - Assessment/Plan (1) Left lower lobe pneumonia Status: Acute Current Visit: Yes Qualifiers: Pneumonia type: due to unspecified organism Qualified Code(s): J18.1 - Lobar pneumonia, unspecified organism (2) Pleural effusion Status: Acute Current Visit: Yes (3) Atrial fibrillation Status: Acute Current Visit: Yes Assessment: Finish cefuroxime (4) Squamous cell carcinoma of left lung Status: Acute Current Visit: Yes (5) Renal insufficiency Status: Acute Current Visit: Yes Assessment: Check CMP in the am (6) Congestive heart failure Status: Acute Current Visit: Yes Assessment: Well compensated currently (7) CAD (coronary artery disease), [place] coronary artery Status: Acute Current Visit: Yes Assessment: No acute ischemia (8) Hypothyroidism Status: Acute Current Visit: Yes Assessment: Continue current dose of levothyroxine
[2018-08-17] MEDS: POLYETHYLENE GLYCOL 3350 17 GM POWD.PACK PO SCH (10:43)
[2018-08-17] MEDS: MAGNESIUM HYDROXIDE 400 MG/5 ML 30ML UDC PO PRN (12:49)
[2018-08-17] MEDS: TAMSULOSIN HCL 0.4 MG CAP.ER.24H PO SCH (17:57)
[2018-08-17] MEDS: WARFARIN SODIUM 5 MG TABLET PO SCH (17:57)
[2018-08-17] MEDS: SIMVASTATIN 20 MG TABLET PO SCH (19:24)
[2018-08-18] MEDS: IPRATROPIUM/ALBUTEROL SULFATE 3 ML AMPUL.NEB NEB SCH ×4 (00:33→19:39)
[2018-08-18] MEDS: LEVOTHYROXINE SODIUM 25 MCG TABLET PO SCH (06:11)
[2018-08-18] MEDS: PANTOPRAZOLE SODIUM 40 MG TABLET PO SCH (06:11)
[2018-08-18] MEDS: CARVEDILOL 6.25 MG TABLET PO SCH (08:57)
[2018-08-18] MEDS: ALLOPURINOL 100 MG TABLET PO SCH (08:57)
[2018-08-18] MEDS: FUROSEMIDE 20 MG TABLET PO SCH (08:57)
[2018-08-18] MEDS: ISOSORBIDE MONONITRATE 30 MG TAB.ER.24H PO SCH (08:57)
[2018-08-18] MEDS: ASPIRIN 81 MG CHEW TAB PO SCH (08:57)
[2018-08-18] MEDS: Non-Formulary 1 EACH PO SCH ×3 (08:58→17:55)
[2018-08-18] MEDS: LORATADINE/PSEUDOEPHEDRINE 1 EACH TAB.ER.12H PO SCH ×2 (08:58→20:48)
[2018-08-18] MEDS: HYDRALAZINE HCL 25 MG TABLET PO SCH ×3 (08:58→17:55)
[2018-08-18] MEDS: NYSTATIN 500,000 UNIT/5 ML UDC PO SCH ×4 (08:58→20:50)
[2018-08-18] MEDS: CEFUROXIME AXETIL 250 MG TABLET PO SCH ×2 (09:03→20:49)
[2018-08-18] MEDS ORDERED: MAGNESIUM CITRATE 296 ML BOTTLE PO ONE (10:07)
[2018-08-18] MEDS: POLYETHYLENE GLYCOL 3350 17 GM POWD.PACK PO SCH (11:45)
[2018-08-18] MEDS: TAMSULOSIN HCL 0.4 MG CAP.ER.24H PO SCH (17:55)
[2018-08-18] MEDS: WARFARIN SODIUM 5 MG TABLET PO SCH (17:56)
[2018-08-18] MEDS ORDERED: WARFARIN SODIUM 5 MG TABLET PO SCH ×2 (18:00)
[2018-08-18] MEDS: SIMVASTATIN 20 MG TABLET PO SCH (20:47)
[2018-08-19] MEDS: IPRATROPIUM/ALBUTEROL SULFATE 3 ML AMPUL.NEB NEB SCH ×4 (00:13→19:39)
[2018-08-19] MEDS: PANTOPRAZOLE SODIUM 40 MG TABLET PO SCH (06:07)
[2018-08-19] MEDS: LEVOTHYROXINE SODIUM 25 MCG TABLET PO SCH (06:07)
[2018-08-19] MEDS: ALLOPURINOL 100 MG TABLET PO SCH (08:14)
[2018-08-19] MEDS: CARVEDILOL 6.25 MG TABLET PO SCH (08:14)
[2018-08-19] MEDS: FUROSEMIDE 20 MG TABLET PO SCH (08:14)
[2018-08-19] MEDS: ASPIRIN 81 MG CHEW TAB PO SCH (08:14)
[2018-08-19] MEDS: ISOSORBIDE MONONITRATE 30 MG TAB.ER.24H PO SCH (08:14)
[2018-08-19] MEDS: CEFUROXIME AXETIL 250 MG TABLET PO SCH ×2 (08:14→20:00)
[2018-08-19] MEDS: NYSTATIN 500,000 UNIT/5 ML UDC PO SCH ×4 (08:15→20:01)
[2018-08-19] MEDS: HYDRALAZINE HCL 25 MG TABLET PO SCH ×3 (08:15→17:44)
[2018-08-19] MEDS: LORATADINE/PSEUDOEPHEDRINE 1 EACH TAB.ER.12H PO SCH ×2 (08:15→20:01)
[2018-08-19] MEDS: Non-Formulary 1 EACH PO SCH ×3 (08:15→17:47)
[2018-08-19] MEDS: POLYETHYLENE GLYCOL 3350 17 GM POWD.PACK PO SCH (10:51)
[2018-08-19] MEDS: TAMSULOSIN HCL 0.4 MG CAP.ER.24H PO SCH (17:47)
[2018-08-19] MEDS: WARFARIN SODIUM 5 MG TABLET PO SCH (17:48)
[2018-08-19] MEDS: SIMVASTATIN 20 MG TABLET PO SCH (20:01)
[2018-08-20] MEDS: IPRATROPIUM/ALBUTEROL SULFATE 3 ML AMPUL.NEB NEB SCH ×5 (00:03→23:50)
[2018-08-20] MEDS: PANTOPRAZOLE SODIUM 40 MG TABLET PO SCH (06:02)
[2018-08-20] MEDS: LEVOTHYROXINE SODIUM 25 MCG TABLET PO SCH (06:02)
[2018-08-20] MEDS: ASPIRIN 81 MG CHEW TAB PO SCH (09:54)
[2018-08-20] MEDS: HYDRALAZINE HCL 25 MG TABLET PO SCH ×4 (09:54→17:06)
[2018-08-20] MEDS: ISOSORBIDE MONONITRATE 30 MG TAB.ER.24H PO SCH (09:55)
[2018-08-20] MEDS: CARVEDILOL 6.25 MG TABLET PO SCH (09:55)
[2018-08-20] MEDS: CEFUROXIME AXETIL 250 MG TABLET PO SCH ×2 (09:55→20:05)
[2018-08-20] MEDS: LORATADINE/PSEUDOEPHEDRINE 1 EACH TAB.ER.12H PO SCH ×2 (09:55→20:06)
[2018-08-20] MEDS: Non-Formulary 1 EACH PO SCH ×3 (09:56→17:07)
[2018-08-20] MEDS: FUROSEMIDE 20 MG TABLET PO SCH (09:56)
[2018-08-20] MEDS: ALLOPURINOL 100 MG TABLET PO SCH (09:56)
[2018-08-20] MEDS: NYSTATIN 500,000 UNIT/5 ML UDC PO SCH ×4 (09:56→20:05)
[2018-08-20] MEDS: POLYETHYLENE GLYCOL 3350 17 GM POWD.PACK PO SCH (12:11)
[2018-08-20] MEDS: WARFARIN SODIUM 5 MG TABLET PO SCH (17:06)
[2018-08-20] MEDS: TAMSULOSIN HCL 0.4 MG CAP.ER.24H PO SCH (17:07)
[2018-08-20] MEDS: SIMVASTATIN 20 MG TABLET PO SCH (20:05)
[2018-08-21] MEDS: PANTOPRAZOLE SODIUM 40 MG TABLET PO SCH (06:01)
[2018-08-21] MEDS: LEVOTHYROXINE SODIUM 25 MCG TABLET PO SCH (06:01)
[2018-08-21] MEDS: IPRATROPIUM/ALBUTEROL SULFATE 3 ML AMPUL.NEB NEB SCH ×2 (06:02→12:35)
[2018-08-21] MEDS: NYSTATIN 500,000 UNIT/5 ML UDC PO SCH ×4 (08:38→20:04)
[2018-08-21] MEDS: FUROSEMIDE 20 MG TABLET PO SCH (08:39)
[2018-08-21] MEDS: Non-Formulary 1 EACH PO SCH ×3 (08:39→17:56)
[2018-08-21] MEDS: ASPIRIN 81 MG CHEW TAB PO SCH (08:39)
[2018-08-21] MEDS: CARVEDILOL 6.25 MG TABLET PO SCH (08:39)
[2018-08-21] MEDS: ALLOPURINOL 100 MG TABLET PO SCH (08:39)
[2018-08-21] MEDS: ISOSORBIDE MONONITRATE 30 MG TAB.ER.24H PO SCH (08:39)
[2018-08-21] MEDS: LORATADINE/PSEUDOEPHEDRINE 1 EACH TAB.ER.12H PO SCH ×2 (08:40→20:04)
[2018-08-21] MEDS: HYDRALAZINE HCL 25 MG TABLET PO SCH ×3 (08:40→17:34)
[2018-08-21] MEDS: CEFUROXIME AXETIL 250 MG TABLET PO SCH (08:40)
--- NOTE | 2018-08-21 11:03 | Inpatient Progress Note ---
Subjective - Required Recertification Statement I anticipate X number of days because-include discharge plan: 10 - Review of Systems Events since last encounter: Fili doing better. His INR is now therapeutic. He is still somewhat dyspneic with ambulation. He is having some BMs now with Miralax/enema/colace. His blood pressure is well controlled. General: Denies: Chills, Night Sweats HEENT: Denies: Head Aches Pulmonary: Denies: Dyspnea, Cough Cardiovascular: Denies: Chest Pain Gastrointestinal: Constipation. Denies: Nausea, Vomiting Genitourinary: Retention. Denies: Dysuria Musculoskeletal: Neck Pain, Shoulder Pain Neurological: Denies: Weakness, Numbness Objective - Exam Vitals and I&O: Vital Signs Temp 97.9 F 08/20/18 21:00 Pulse 76 08/20/18 21:00 Resp 16 08/20/18 21:00 BP 109/60 08/20/18 21:00 Pulse Ox 97 08/20/18 21:00 Intake & Output 08/20/18 08/20/18 08/21/18 11:59 23:59 11:59 Intake Total 620 1080 600 Balance 620 1080 600 Weight 65.771 kg Intake: Oral 620 1080 600 Other: Voiding Method Toilet Toilet # Voids 6 2 3 # Bowel Movements 1 General: Alert, Oriented to Person, Oriented to Place, Oriented to Time HEENT: Atraumatic, PERRLA, EOMI Neck: Supple, No JVD Lungs: Clear to auscultation, Decreased Air Movement Cardiovascular: Regular rate Abdomen: Normal bowel sounds Extremities: No clubbing, No cyanosis Skin: Normal Neurological: Normal gait, Normal speech - Results Results: Laboratory Results WBC Comment 8.90 thou/uL (4.00-12.00) 08/12/18 Unknown RBC 3.90 mil/uL (3.80-5.80) 08/12/18 Unknown Hemoglobin (Send Out) 12.4 g/dL (12.0-18.0) 08/12/18 Unknown Hct (Send Out) 39.2 % (37.0-53.0) 08/12/18 Unknown MCV (Send Out) 100.4 fL (80.0-100.0) H 08/12/18 Unknown MCH 31.8 pg (28.0-34.0) 08/12/18 Unknown MCHC (Send Out) 31.7 g/dL (30.0-36.0) 08/12/18 Unknown RDW Coeff of Nic 12.8 % (11.3-14.7) 08/12/18 Unknown Plt Count 238 thou/uL (130-400) 08/12/18 Unknown Absolute Lymphs (auto) 0.61 thou/uL (0.60-4.00) 08/12/18 Unknown Absolute Monos (auto) 0.46 thou/uL (0.00-0.90) 08/12/18 Unknown Absolute Basos (auto) 0.01 thou/uL (0.00-0.50) 08/12/18 Unknown Neutrophils % 87.9 % (39.0-79.0) H 08/12/18 Unknown Absolute Neutrophils 7.82 thou/uL (1.50-7.70) H 08/12/18 Unknown Lymphocytes 6.8 % (16.0-50.0) L 08/12/18 Unknown Monocytes 5.2 % (0.0-11.0) 08/12/18 Unknown Absolute Eosinophils 0.01 thou/uL (0.00-0.60) 08/12/18 Unknown Basophilia % 0.1 % (0.0-1.5) 08/12/18 Unknown Eosinophil Count 0.1 % (0.0-6.8) 08/12/18 Unknown PT 24.0 Seconds (9.4-11.6) H 08/21/18 05:45 INR 2.27 (0.9-1.2) H 08/21/18 05:45 Sodium 132 mmol/L (136-145) L 08/18/18 06:15 Potassium 4.4 mmol/L (3.5-5.1) 08/18/18 06:15 Chloride 104 mmol/L (98-107) 08/18/18 06:15 Carbon Dioxide 34 mmol/L (22-30) H 08/18/18 06:15 Total Carbon Dioxide 34 mmol/L (22-29) H 08/12/18 Unknown BUN 41 mg/dL (9-20) H 08/18/18 06:15 Creatinine 1.60 mg/dL (0.66-1.25) H 08/18/18 06:15 Estimated Creat Clear 33 08/18/18 06:15 Est GFR ( Amer) 54 (60-) L 08/18/18 06:15 Est GFR (Non-Af Amer) 45 (60-) L 08/18/18 06:15 Estimated GFR mL/min 46 L 08/12/18 Unknown Glucose 78 mg/dL (74-106) 08/18/18 06:15 Calcium 8.1 mg/dL (8.4-10.2) L 08/18/18 06:15 Total Bilirubin 0.4 mg/dL (0.2-1.3) 08/18/18 06:15 AST 15 U/L (15-46) 08/18/18 06:15 ALT 40 U/L (13-69) 08/18/18 06:15 Alkaline Phosphatase 60 U/L (38-126) 08/18/18 06:15 Total Protein 5.0 g/dL (6.3-8.2) L 08/18/18 06:15 Albumin 2.6 g/dL (3.5-5.0) L 08/18/18 06:15 Urine Color Yellow (YELLOW) 08/16/18 18:42 Urine Appearance Cloudy (CLEAR) 08/16/18 18:42 Urine pH 7.5 (5.0 - 8.0) 08/16/18 18:42 Ur Specific [place] 1.020 (1.010-1.030) 08/16/18 18:42 Urine Protein 1+ mg/dL (NEGATIVE) H 08/16/18 18:42 Urine Ketones Negative mg/dL (NEGATIVE) 08/16/18 18:42 Urine Occult Blood 1+ (NEGATIVE) H 08/16/18 18:42 Urine Nitrite Negative (NEGATIVE) 08/16/18 18:42 Urine Bilirubin Negative (NEGATIVE) 08/16/18 18:42 Urine Urobilinogen 0.2 Eu (0.2-1.0) 08/16/18 18:42 Ur Leukocyte Esterase Negative (NEGATIVE) 08/16/18 18:42 Urine Glucose Negative mg/dL (NEGATIVE) 08/16/18 18:42 Assessment/Plan - Assessment/Plan (1) Left lower lobe pneumonia Status: Acute Current Visit: Yes Qualifiers: Pneumonia type: due to unspecified organism Qualified Code(s): J18.1 - Lobar pneumonia, unspecified organism Assessment: Finish cefuroxime (2) Pleural effusion Status: Acute Current Visit: Yes (3) Atrial fibrillation Status: Acute Current Visit: Yes Assessment: Now with therapeutic INR Plan: Continue warfarin, and follow INRs (he has a tendency to go too high) (4) Squamous cell carcinoma of left lung Status: Acute Current Visit: Yes (5) Renal insufficiency Status: Acute Current Visit: Yes Assessment: Improved (6) Congestive heart failure Status: Acute Current Visit: Yes Assessment: Well compensated (7) CAD (coronary artery disease), [place] coronary artery Status: Acute Current Visit: Yes Assessment: No acute ischemia (8) Hypothyroidism Status: Acute Current Visit: Yes Qualifiers: Hypothyroidism type: acquired Qualified Code(s): E03.9 - Hypothyroidism, unspecified Assessment: Continue current dose of levothyroxine
[2018-08-21] MEDS: POLYETHYLENE GLYCOL 3350 17 GM POWD.PACK PO SCH (12:27)
[2018-08-21] MEDS: WARFARIN SODIUM 5 MG TABLET PO SCH (17:35)
[2018-08-21] MEDS: TAMSULOSIN HCL 0.4 MG CAP.ER.24H PO SCH (17:35)
[2018-08-21] MEDS: SIMVASTATIN 20 MG TABLET PO SCH (20:04)
[2018-08-22] MEDS: PANTOPRAZOLE SODIUM 40 MG TABLET PO SCH (06:09)
[2018-08-22] MEDS: LEVOTHYROXINE SODIUM 25 MCG TABLET PO SCH (06:09)
[2018-08-22] MEDS: LORATADINE/PSEUDOEPHEDRINE 1 EACH TAB.ER.12H PO SCH ×2 (08:21→20:30)
[2018-08-22] MEDS: NYSTATIN 500,000 UNIT/5 ML UDC PO SCH ×4 (08:21→20:30)
[2018-08-22] MEDS: CARVEDILOL 6.25 MG TABLET PO SCH (08:22)
[2018-08-22] MEDS: Non-Formulary 1 EACH PO SCH ×3 (08:22→18:16)
[2018-08-22] MEDS: ISOSORBIDE MONONITRATE 30 MG TAB.ER.24H PO SCH (08:22)
[2018-08-22] MEDS: ASPIRIN 81 MG CHEW TAB PO SCH (08:22)
[2018-08-22] MEDS: HYDRALAZINE HCL 25 MG TABLET PO SCH ×3 (08:23→18:16)
[2018-08-22] MEDS: FUROSEMIDE 20 MG TABLET PO SCH (08:23)
[2018-08-22] MEDS: ALLOPURINOL 100 MG TABLET PO SCH (08:23)
[2018-08-22] MEDS: POLYETHYLENE GLYCOL 3350 17 GM POWD.PACK PO SCH (12:22)
[2018-08-22] MEDS: TAMSULOSIN HCL 0.4 MG CAP.ER.24H PO SCH (18:15)
[2018-08-22] MEDS: WARFARIN SODIUM 5 MG TABLET PO SCH (18:15)
[2018-08-22] MEDS: SIMVASTATIN 20 MG TABLET PO SCH (20:30)
[2018-08-23] MEDS: LEVOTHYROXINE SODIUM 25 MCG TABLET PO SCH (06:31)
[2018-08-23] MEDS: PANTOPRAZOLE SODIUM 40 MG TABLET PO SCH (06:31)
[2018-08-23] MEDS: ASPIRIN 81 MG CHEW TAB PO SCH (09:16)
[2018-08-23] MEDS: FUROSEMIDE 20 MG TABLET PO SCH (09:16)
[2018-08-23] MEDS: ALLOPURINOL 100 MG TABLET PO SCH (09:16)
[2018-08-23] MEDS: ISOSORBIDE MONONITRATE 30 MG TAB.ER.24H PO SCH (09:16)
[2018-08-23] MEDS: CARVEDILOL 6.25 MG TABLET PO SCH (09:16)
[2018-08-23] MEDS: HYDRALAZINE HCL 25 MG TABLET PO SCH ×3 (09:17→17:58)
[2018-08-23] MEDS: Non-Formulary 1 EACH PO SCH ×3 (09:17→18:20)
[2018-08-23] MEDS: LORATADINE/PSEUDOEPHEDRINE 1 EACH TAB.ER.12H PO SCH ×2 (09:17→20:06)
[2018-08-23] MEDS: NYSTATIN 500,000 UNIT/5 ML UDC PO SCH ×3 (09:17→17:43)
[2018-08-23] MEDS: POLYETHYLENE GLYCOL 3350 17 GM POWD.PACK PO SCH (11:19)
[2018-08-23] MEDS: TAMSULOSIN HCL 0.4 MG CAP.ER.24H PO SCH (17:42)
[2018-08-23] MEDS: WARFARIN SODIUM 5 MG TABLET PO SCH (17:48)
[2018-08-23] MEDS: SIMVASTATIN 20 MG TABLET PO SCH (20:06)
[2018-08-24] MEDS: PANTOPRAZOLE SODIUM 40 MG TABLET PO SCH (06:37)
[2018-08-24] MEDS: LEVOTHYROXINE SODIUM 25 MCG TABLET PO SCH (06:37)
[2018-08-24] MEDS: ALLOPURINOL 100 MG TABLET PO SCH (09:16)
[2018-08-24] MEDS: ISOSORBIDE MONONITRATE 30 MG TAB.ER.24H PO SCH (09:16)
[2018-08-24] MEDS: HYDRALAZINE HCL 25 MG TABLET PO SCH ×3 (09:16→17:42)
[2018-08-24] MEDS: ASPIRIN 81 MG CHEW TAB PO SCH (09:16)
[2018-08-24] MEDS: CARVEDILOL 6.25 MG TABLET PO SCH (09:16)
[2018-08-24] MEDS: FUROSEMIDE 20 MG TABLET PO SCH (09:16)
[2018-08-24] MEDS: LORATADINE/PSEUDOEPHEDRINE 1 EACH TAB.ER.12H PO SCH ×2 (09:17→20:08)
[2018-08-24] MEDS: Non-Formulary 1 EACH PO SCH ×3 (09:27→17:41)
[2018-08-24] MEDS: POLYETHYLENE GLYCOL 3350 17 GM POWD.PACK PO SCH (11:15)
[2018-08-24] MEDS: TAMSULOSIN HCL 0.4 MG CAP.ER.24H PO SCH (17:41)
[2018-08-24] MEDS: WARFARIN SODIUM 5 MG TABLET PO SCH (17:41)
[2018-08-24] MEDS: SIMVASTATIN 20 MG TABLET PO SCH (20:05)
[2018-08-25] MEDS: LEVOTHYROXINE SODIUM 25 MCG TABLET PO SCH (06:24)
[2018-08-25] MEDS: PANTOPRAZOLE SODIUM 40 MG TABLET PO SCH (06:24)
[2018-08-25] MEDS: ALLOPURINOL 100 MG TABLET PO SCH (10:01)
[2018-08-25] MEDS: ASPIRIN 81 MG CHEW TAB PO SCH (10:02)
[2018-08-25] MEDS: HYDRALAZINE HCL 25 MG TABLET PO SCH ×3 (10:02→18:04)
[2018-08-25] MEDS: ISOSORBIDE MONONITRATE 30 MG TAB.ER.24H PO SCH (10:02)
[2018-08-25] MEDS: LORATADINE/PSEUDOEPHEDRINE 1 EACH TAB.ER.12H PO SCH ×2 (10:02→20:24)
[2018-08-25] MEDS: FUROSEMIDE 20 MG TABLET PO SCH (10:02)
[2018-08-25] MEDS: CARVEDILOL 6.25 MG TABLET PO SCH (10:02)
[2018-08-25] MEDS: Non-Formulary 1 EACH PO SCH ×3 (10:04→18:04)
[2018-08-25] MEDS: POLYETHYLENE GLYCOL 3350 17 GM POWD.PACK PO SCH (11:40)
[2018-08-25] MEDS: TAMSULOSIN HCL 0.4 MG CAP.ER.24H PO SCH (18:04)
[2018-08-25] MEDS: WARFARIN SODIUM 5 MG TABLET PO SCH (18:04)
[2018-08-25] MEDS: SIMVASTATIN 20 MG TABLET PO SCH (20:23)
[2018-08-26] MEDS: LEVOTHYROXINE SODIUM 25 MCG TABLET PO SCH (06:11)
[2018-08-26] MEDS: PANTOPRAZOLE SODIUM 40 MG TABLET PO SCH (06:11)
[2018-08-26] MEDS: HYDRALAZINE HCL 25 MG TABLET PO SCH ×3 (09:05→21:39)
[2018-08-26] MEDS: ASPIRIN 81 MG CHEW TAB PO SCH (09:07)
[2018-08-26] MEDS: CARVEDILOL 6.25 MG TABLET PO SCH (09:08)
[2018-08-26] MEDS: FUROSEMIDE 20 MG TABLET PO SCH (09:08)
[2018-08-26] MEDS: LORATADINE/PSEUDOEPHEDRINE 1 EACH TAB.ER.12H PO SCH ×2 (09:08→20:18)
[2018-08-26] MEDS: ISOSORBIDE MONONITRATE 30 MG TAB.ER.24H PO SCH (09:09)
[2018-08-26] MEDS: Non-Formulary 1 EACH PO SCH ×3 (09:09→17:58)
[2018-08-26] MEDS: ALLOPURINOL 100 MG TABLET PO SCH (09:10)
[2018-08-26] MEDS: POLYETHYLENE GLYCOL 3350 17 GM POWD.PACK PO SCH (11:22)
[2018-08-26] MEDS: WARFARIN SODIUM 5 MG TABLET PO SCH (17:56)
[2018-08-26] MEDS: TAMSULOSIN HCL 0.4 MG CAP.ER.24H PO SCH (17:57)
[2018-08-26] MEDS: SIMVASTATIN 20 MG TABLET PO SCH (20:18)
[2018-08-27] MEDS: LEVOTHYROXINE SODIUM 25 MCG TABLET PO SCH (06:28)
[2018-08-27] MEDS: PANTOPRAZOLE SODIUM 40 MG TABLET PO SCH (06:28)
[2018-08-27] MEDS: IPRATROPIUM/ALBUTEROL SULFATE 3 ML AMPUL.NEB NEB PRN (08:30)
[2018-08-27] MEDS: ASPIRIN 81 MG CHEW TAB PO SCH (08:49)
[2018-08-27] MEDS: ISOSORBIDE MONONITRATE 30 MG TAB.ER.24H PO SCH (08:49)
[2018-08-27] MEDS: CARVEDILOL 6.25 MG TABLET PO SCH (08:49)
[2018-08-27] MEDS: ALLOPURINOL 100 MG TABLET PO SCH (08:49)
[2018-08-27] MEDS: Non-Formulary 1 EACH PO SCH ×3 (08:50→17:53)
[2018-08-27] MEDS: LORATADINE/PSEUDOEPHEDRINE 1 EACH TAB.ER.12H PO SCH ×3 (08:50→20:39)
[2018-08-27] MEDS: FUROSEMIDE 20 MG TABLET PO SCH (08:50)
[2018-08-27] MEDS: HYDRALAZINE HCL 25 MG TABLET PO SCH ×3 (08:50→17:53)
[2018-08-27] MEDS: POLYETHYLENE GLYCOL 3350 17 GM POWD.PACK PO SCH (11:06)
[2018-08-27] MEDS: TAMSULOSIN HCL 0.4 MG CAP.ER.24H PO SCH (17:52)
--- NOTE | 2018-08-27 18:06 | Inpatient Progress Note ---
Subjective - Required Recertification Statement I anticipate X number of days because-include discharge plan: 5 days - Review of Systems Events since last encounter: Patient seems to be doing well at this time. BM ok. Appetite is good. Feels that PT and OT are doing well at this time. A fib is stable. INR is being monitored Pulmonary: Denies: Cough Cardiovascular: Denies: Chest Pain Gastrointestinal: Denies: Nausea, Vomiting, Abdominal Pain Genitourinary: Denies: Dysuria Objective - Exam Vitals and I&O: Vital Signs Temp 97.2 F L 08/27/18 08:35 Pulse 70 08/27/18 09:00 Resp 20 08/27/18 09:00 BP 122/56 08/27/18 08:35 Pulse Ox 97 08/27/18 08:35 Intake & Output 08/26/18 08/27/18 08/27/18 23:59 11:59 23:59 Intake Total 2917 908 4126 Balance 7547 120 9801 Weight 65.771 kg Intake: Oral 2615 495 6030 Other: Voiding Method Toilet Toilet # Voids 1 3 4 General: Alert, Oriented to Person, Oriented to Place, Oriented to Time, Cooperative Neck: Supple Lungs: Clear to auscultation, Normal air movement, Speaks full Sentences, Respiratory Distress. No: Wheezes, Rales, Rhonchi Cardiovascular: Regular rate, Normal S1, Normal S2, No murmurs Abdomen: Normal bowel sounds, Soft, No tenderness Skin: Normal, [place], Warm, Dry Psych/Mental Status: Mental status NL, Mood NL - Results Results: Laboratory Results WBC Comment 8.90 thou/uL (4.00-12.00) 08/12/18 Unknown RBC 3.90 mil/uL (3.80-5.80) 08/12/18 Unknown Hemoglobin (Send Out) 12.4 g/dL (12.0-18.0) 08/12/18 Unknown Hct (Send Out) 39.2 % (37.0-53.0) 08/12/18 Unknown MCV (Send Out) 100.4 fL (80.0-100.0) H 08/12/18 Unknown MCH 31.8 pg (28.0-34.0) 08/12/18 Unknown MCHC (Send Out) 31.7 g/dL (30.0-36.0) 08/12/18 Unknown RDW Coeff of Nic 12.8 % (11.3-14.7) 08/12/18 Unknown Plt Count 238 thou/uL (130-400) 08/12/18 Unknown Absolute Lymphs (auto) 0.61 thou/uL (0.60-4.00) 08/12/18 Unknown Absolute Monos (auto) 0.46 thou/uL (0.00-0.90) 08/12/18 Unknown Absolute Basos (auto) 0.01 thou/uL (0.00-0.50) 08/12/18 Unknown Neutrophils % 87.9 % (39.0-79.0) H 08/12/18 Unknown Absolute Neutrophils 7.82 thou/uL (1.50-7.70) H 08/12/18 Unknown Lymphocytes 6.8 % (16.0-50.0) L 08/12/18 Unknown Monocytes 5.2 % (0.0-11.0) 08/12/18 Unknown Absolute Eosinophils 0.01 thou/uL (0.00-0.60) 08/12/18 Unknown Basophilia % 0.1 % (0.0-1.5) 08/12/18 Unknown Eosinophil Count 0.1 % (0.0-6.8) 08/12/18 Unknown PT 32.2 Seconds (9.4-11.6) H 08/26/18 08:10 INR 3.04 (0.9-1.2) H 08/26/18 08:10 Sodium 132 mmol/L (136-145) L 08/18/18 06:15 Potassium 4.4 mmol/L (3.5-5.1) 08/18/18 06:15 Chloride 104 mmol/L (98-107) 08/18/18 06:15 Carbon Dioxide 34 mmol/L (22-30) H 08/18/18 06:15 Total Carbon Dioxide 34 mmol/L (22-29) H 08/12/18 Unknown BUN 41 mg/dL (9-20) H 08/18/18 06:15 Creatinine 1.60 mg/dL (0.66-1.25) H 08/18/18 06:15 Estimated Creat Clear 33 08/18/18 06:15 Est GFR ( Amer) 54 (60-) L 08/18/18 06:15 Est GFR (Non-Af Amer) 45 (60-) L 08/18/18 06:15 Estimated GFR mL/min 46 L 08/12/18 Unknown Glucose 78 mg/dL (74-106) 08/18/18 06:15 Calcium 8.1 mg/dL (8.4-10.2) L 08/18/18 06:15 Total Bilirubin 0.4 mg/dL (0.2-1.3) 08/18/18 06:15 AST 15 U/L (15-46) 08/18/18 06:15 ALT 40 U/L (13-69) 08/18/18 06:15 Alkaline Phosphatase 60 U/L (38-126) 08/18/18 06:15 Total Protein 5.0 g/dL (6.3-8.2) L 08/18/18 06:15 Albumin 2.6 g/dL (3.5-5.0) L 08/18/18 06:15 Urine Color Yellow (YELLOW) 08/16/18 18:42 Urine Appearance Cloudy (CLEAR) 08/16/18 18:42 Urine pH 7.5 (5.0 - 8.0) 08/16/18 18:42 Ur Specific [place] 1.020 (1.010-1.030) 08/16/18 18:42 Urine Protein 1+ mg/dL (NEGATIVE) H 08/16/18 18:42 Urine Ketones Negative mg/dL (NEGATIVE) 08/16/18 18:42 Urine Occult Blood 1+ (NEGATIVE) H 08/16/18 18:42 Urine Nitrite Negative (NEGATIVE) 08/16/18 18:42 Urine Bilirubin Negative (NEGATIVE) 08/16/18 18:42 Urine Urobilinogen 0.2 Eu (0.2-1.0) 08/16/18 18:42 Ur Leukocyte Esterase Negative (NEGATIVE) 08/16/18 18:42 Urine Glucose Negative mg/dL (NEGATIVE) 08/16/18 18:42 Assessment/Plan - Assessment/Plan (1) Atrial fibrillation Status: Acute Current Visit: Yes Assessment: stable (2) Squamous cell carcinoma of left lung Status: Acute Current Visit: Yes Assessment: no evidence of active disease (3) Chronic obstructive lung disease Status: Chronic Current Visit: No Assessment: stable
[2018-08-27] MEDS: SIMVASTATIN 20 MG TABLET PO SCH (20:38)
[2018-08-28] MEDS: PANTOPRAZOLE SODIUM 40 MG TABLET PO SCH (06:00)
[2018-08-28] MEDS: LEVOTHYROXINE SODIUM 25 MCG TABLET PO SCH (06:00)
[2018-08-28] MEDS: CARVEDILOL 6.25 MG TABLET PO SCH (09:39)
[2018-08-28] MEDS: FUROSEMIDE 20 MG TABLET PO SCH (09:39)
[2018-08-28] MEDS: ISOSORBIDE MONONITRATE 30 MG TAB.ER.24H PO SCH (09:39)
[2018-08-28] MEDS: Non-Formulary 1 EACH PO SCH ×3 (09:39→17:33)
[2018-08-28] MEDS: ASPIRIN 81 MG CHEW TAB PO SCH (09:39)
[2018-08-28] MEDS: LORATADINE/PSEUDOEPHEDRINE 1 EACH TAB.ER.12H PO SCH ×2 (09:39→20:21)
[2018-08-28] MEDS: ALLOPURINOL 100 MG TABLET PO SCH (09:39)
[2018-08-28] MEDS: HYDRALAZINE HCL 25 MG TABLET PO SCH ×3 (09:40→17:33)
[2018-08-28] MEDS: POLYETHYLENE GLYCOL 3350 17 GM POWD.PACK PO SCH (11:05)
[2018-08-28] MEDS: TAMSULOSIN HCL 0.4 MG CAP.ER.24H PO SCH (17:33)
[2018-08-28] MEDS ORDERED: WARFARIN SODIUM 2.5 MG TABLET PO SCH (18:00)
[2018-08-28] MEDS ORDERED: WARFARIN SODIUM 5 MG TABLET PO SCH (18:00)
[2018-08-28] MEDS: SIMVASTATIN 20 MG TABLET PO SCH (20:21)
[2018-08-29] MEDS: IPRATROPIUM/ALBUTEROL SULFATE 3 ML AMPUL.NEB NEB PRN (05:53)
[2018-08-29] MEDS: LEVOTHYROXINE SODIUM 25 MCG TABLET PO SCH (06:00)
[2018-08-29] MEDS: PANTOPRAZOLE SODIUM 40 MG TABLET PO SCH (06:00)
[2018-08-29] MEDS: ASPIRIN 81 MG CHEW TAB PO SCH (09:30)
[2018-08-29] MEDS: HYDRALAZINE HCL 25 MG TABLET PO SCH ×3 (09:30→17:32)
[2018-08-29] MEDS: FUROSEMIDE 20 MG TABLET PO SCH (09:31)
[2018-08-29] MEDS: CARVEDILOL 6.25 MG TABLET PO SCH (09:31)
[2018-08-29] MEDS: ISOSORBIDE MONONITRATE 30 MG TAB.ER.24H PO SCH (09:31)
[2018-08-29] MEDS: ALLOPURINOL 100 MG TABLET PO SCH (09:32)
[2018-08-29] MEDS: Non-Formulary 1 EACH PO SCH ×3 (09:32→17:33)
[2018-08-29] MEDS: LORATADINE/PSEUDOEPHEDRINE 1 EACH TAB.ER.12H PO SCH ×2 (09:34→20:00)
[2018-08-29] MEDS: POLYETHYLENE GLYCOL 3350 17 GM POWD.PACK PO SCH (11:13)
[2018-08-29] MEDS ORDERED: WARFARIN SODIUM 5 MG TABLET PO ONE (15:41)
[2018-08-29] MEDS: TAMSULOSIN HCL 0.4 MG CAP.ER.24H PO SCH (17:33)
[2018-08-29] MEDS: WARFARIN SODIUM 2.5 MG TABLET PO SCH (18:24)
[2018-08-29] MEDS: SIMVASTATIN 20 MG TABLET PO SCH (20:00)
[2018-08-30] MEDS: LEVOTHYROXINE SODIUM 25 MCG TABLET PO SCH (06:01)
[2018-08-30] MEDS: PANTOPRAZOLE SODIUM 40 MG TABLET PO SCH (06:01)
[2018-08-30] MEDS: ALLOPURINOL 100 MG TABLET PO SCH (09:09)
[2018-08-30] MEDS: FUROSEMIDE 20 MG TABLET PO SCH (09:09)
[2018-08-30] MEDS: ISOSORBIDE MONONITRATE 30 MG TAB.ER.24H PO SCH (09:09)
[2018-08-30] MEDS: ASPIRIN 81 MG CHEW TAB PO SCH (09:09)
[2018-08-30] MEDS: CARVEDILOL 6.25 MG TABLET PO SCH (09:09)
[2018-08-30] MEDS: HYDRALAZINE HCL 25 MG TABLET PO SCH ×3 (09:11→17:55)
[2018-08-30] MEDS: LORATADINE/PSEUDOEPHEDRINE 1 EACH TAB.ER.12H PO SCH ×2 (09:11→19:50)
[2018-08-30] MEDS: Non-Formulary 1 EACH PO SCH ×3 (09:11→18:14)
[2018-08-30] MEDS: POLYETHYLENE GLYCOL 3350 17 GM POWD.PACK PO SCH (10:55)
[2018-08-30] MEDS ORDERED: WARFARIN SODIUM 5 MG TABLET PO ONE (12:52)
[2018-08-30] MEDS: TAMSULOSIN HCL 0.4 MG CAP.ER.24H PO SCH (17:55)
[2018-08-30] MEDS: WARFARIN SODIUM 2.5 MG TABLET PO SCH (18:07)
[2018-08-30] MEDS ORDERED: ACETAMINOPHEN 325 MG TABLET ONE (18:28)
[2018-08-30] MEDS: SIMVASTATIN 20 MG TABLET PO SCH (19:50)
[2018-08-31] MEDS: PANTOPRAZOLE SODIUM 40 MG TABLET PO SCH (05:55)
[2018-08-31] MEDS: LEVOTHYROXINE SODIUM 25 MCG TABLET PO SCH (05:55)
[2018-08-31] MEDS: ISOSORBIDE MONONITRATE 30 MG TAB.ER.24H PO SCH (09:17)
[2018-08-31] MEDS: CARVEDILOL 6.25 MG TABLET PO SCH (09:17)
[2018-08-31] MEDS: LORATADINE/PSEUDOEPHEDRINE 1 EACH TAB.ER.12H PO SCH ×2 (09:17→20:00)
[2018-08-31] MEDS: ASPIRIN 81 MG CHEW TAB PO SCH (09:17)
[2018-08-31] MEDS: HYDRALAZINE HCL 25 MG TABLET PO SCH ×3 (09:18→17:55)
[2018-08-31] MEDS: Non-Formulary 1 EACH PO SCH ×3 (09:18→17:52)
[2018-08-31] MEDS: FUROSEMIDE 20 MG TABLET PO SCH (09:18)
[2018-08-31] MEDS: ALLOPURINOL 100 MG TABLET PO SCH (09:18)
[2018-08-31] MEDS: IPRATROPIUM/ALBUTEROL SULFATE 3 ML AMPUL.NEB NEB PRN (09:25)
[2018-08-31] MEDS: POLYETHYLENE GLYCOL 3350 17 GM POWD.PACK PO SCH (11:05)
[2018-08-31] MEDS ORDERED: WARFARIN SODIUM 5 MG TABLET PO ONE (12:04)
[2018-08-31] MEDS: WARFARIN SODIUM 2.5 MG TABLET PO SCH (17:52)
[2018-08-31] MEDS: TAMSULOSIN HCL 0.4 MG CAP.ER.24H PO SCH (17:52)
[2018-08-31] MEDS: SIMVASTATIN 20 MG TABLET PO SCH (20:00)
[2018-09-01] MEDS: IPRATROPIUM/ALBUTEROL SULFATE 3 ML AMPUL.NEB NEB PRN (05:59)
[2018-09-01] MEDS: LEVOTHYROXINE SODIUM 25 MCG TABLET PO SCH (05:59)
[2018-09-01] MEDS: PANTOPRAZOLE SODIUM 40 MG TABLET PO SCH (05:59)
[2018-09-01] MEDS: ISOSORBIDE MONONITRATE 30 MG TAB.ER.24H PO SCH (08:39)
[2018-09-01] MEDS: HYDRALAZINE HCL 25 MG TABLET PO SCH ×3 (08:39→17:50)
[2018-09-01] MEDS: LORATADINE/PSEUDOEPHEDRINE 1 EACH TAB.ER.12H PO SCH ×2 (08:39→20:09)
[2018-09-01] MEDS: Non-Formulary 1 EACH PO SCH ×3 (08:39→17:52)
[2018-09-01] MEDS: FUROSEMIDE 20 MG TABLET PO SCH (08:39)
[2018-09-01] MEDS: CARVEDILOL 6.25 MG TABLET PO SCH (08:39)
[2018-09-01] MEDS: ASPIRIN 81 MG CHEW TAB PO SCH (08:39)
[2018-09-01] MEDS: ALLOPURINOL 100 MG TABLET PO SCH (08:39)
[2018-09-01] MEDS: POLYETHYLENE GLYCOL 3350 17 GM POWD.PACK PO SCH (11:59)
--- NOTE | 2018-09-01 12:09 | Diagnostic Imaging Report ---
SOPHY GODINEZ [facility] [id number] [facility] [address] [address] Report Submission Date: Sep 01, 2018 11:41:49 AM CDT Patient Study Name: JLUIS COVINGTON Date: Sep 01, 2018 10:49:31 AM CDT Modality Type: DX Gender: M Description: CHEST : 36 Institution: [facility] Physician: SOPHY GODINEZ Examination: PA and lateral chest. History: Evaluate lung dodson. SOA/CONGESTION X1 DAY, PRIOR SMOKER, NO HX OF LUNG SURGERIES (Hx) Comparison exams: 06 December 2014 Findings: PA and lateral views of the chest demonstrates large consolidation involving the left lower lung. Generalized haziness right hemithorax. Vascular calcifications aortic arch. Left-sided cardiac pacemaker. Articular degenerative disease. Impression: New large left lower lung infiltrate/effusion. Electronically signed on Sep 01, 2018 11:41:49 AM CDT by: Gustabo URIBE
[2018-09-01] MEDS ORDERED: LEVOFLOXACIN 500MG/D5W 100ML 100 ML IV ONE (12:28)
[2018-09-01] MEDS: LEVOFLOXACIN 500MG/D5W 100ML 500 MG in PREMIX BAG 1 BAG IV SCH (12:30)
--- NOTE | 2018-09-01 14:45 | Inpatient Progress Note ---
Subjective - Required Recertification Statement I anticipate X number of days because-include discharge plan: 3 - Review of Systems Events since last encounter: Fili has been having some increased shortness of breath, and also has had some problems with his oxygen saturations dropping. A chest X ray this morning shows a large left sided infiltrate/effusion. This is the side that he had an effusion on in the past and had to have thorascentesis with removal of 1L of fluid. This did help quite a bit. 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 General: Fatigue. Denies: Chills, Night Sweats HEENT: Denies: Head Aches Pulmonary: Dyspnea, Cough. Denies: Pleuritic Chest Pain Cardiovascular: Denies: Chest Pain, Palpitations Gastrointestinal: Denies: Nausea, Vomiting Genitourinary: Denies: Dysuria Musculoskeletal: Denies: Neck Pain, Shoulder Pain, Arm Pain Neurological: Weakness. Denies: Confusion Objective - Exam Vitals and I&O: Vital Signs Temp 97.5 F L 09/01/18 09:00 Pulse 61 09/01/18 09:00 Resp 18 09/01/18 09:00 BP 117/52 09/01/18 09:00 Pulse Ox 96 09/01/18 09:00 Intake & Output 08/31/18 09/01/18 09/01/18 23:59 11:59 23:59 Intake Total 1300 920 200 Balance 1300 920 200 Intake: Oral 1300 920 200 Other: Voiding Method Toilet Toilet # Voids 1 4 # Bowel Movements 1 General: Alert, Oriented to Person, Oriented to Place, Oriented to Time, Cooperative, Mild distress HEENT: Atraumatic, PERRLA, EOMI Neck: Supple, No JVD, No thyromegaly Lungs: Decreased Air Movement (left hemithorax) Cardiovascular: Regular rate Abdomen: Normal bowel sounds, Soft, No tenderness Extremities: No clubbing, No cyanosis, No edema Skin: Normal, [place] Neurological: Normal speech Psych/Mental Status: Mental status NL - Results Results: Laboratory Results WBC Comment 8.90 thou/uL (4.00-12.00) 08/12/18 Unknown RBC 3.90 mil/uL (3.80-5.80) 08/12/18 Unknown Hemoglobin (Send Out) 12.4 g/dL (12.0-18.0) 08/12/18 Unknown Hct (Send Out) 39.2 % (37.0-53.0) 08/12/18 Unknown MCV (Send Out) 100.4 fL (80.0-100.0) H 08/12/18 Unknown MCH 31.8 pg (28.0-34.0) 08/12/18 Unknown MCHC (Send Out) 31.7 g/dL (30.0-36.0) 08/12/18 Unknown RDW Coeff of Nic 12.8 % (11.3-14.7) 08/12/18 Unknown Plt Count 238 thou/uL (130-400) 08/12/18 Unknown Absolute Lymphs (auto) 0.61 thou/uL (0.60-4.00) 08/12/18 Unknown Absolute Monos (auto) 0.46 thou/uL (0.00-0.90) 08/12/18 Unknown Absolute Basos (auto) 0.01 thou/uL (0.00-0.50) 08/12/18 Unknown Neutrophils % 87.9 % (39.0-79.0) H 08/12/18 Unknown Absolute Neutrophils 7.82 thou/uL (1.50-7.70) H 08/12/18 Unknown Lymphocytes 6.8 % (16.0-50.0) L 08/12/18 Unknown Monocytes 5.2 % (0.0-11.0) 08/12/18 Unknown Absolute Eosinophils 0.01 thou/uL (0.00-0.60) 08/12/18 Unknown Basophilia % 0.1 % (0.0-1.5) 08/12/18 Unknown Eosinophil Count 0.1 % (0.0-6.8) 08/12/18 Unknown PT 20.7 Seconds (9.4-11.6) H 09/01/18 06:30 INR 1.96 (0.9-1.2) H 09/01/18 06:30 Sodium 132 mmol/L (136-145) L 08/18/18 06:15 Potassium 4.4 mmol/L (3.5-5.1) 08/18/18 06:15 Chloride 104 mmol/L (98-107) 08/18/18 06:15 Carbon Dioxide 34 mmol/L (22-30) H 08/18/18 06:15 Total Carbon Dioxide 34 mmol/L (22-29) H 08/12/18 Unknown BUN 41 mg/dL (9-20) H 08/18/18 06:15 Creatinine 1.60 mg/dL (0.66-1.25) H 08/18/18 06:15 Estimated Creat Clear 33 08/18/18 06:15 Est GFR ( Amer) 54 (60-) L 08/18/18 06:15 Est GFR (Non-Af Amer) 45 (60-) L 08/18/18 06:15 Estimated GFR mL/min 46 L 08/12/18 Unknown Glucose 78 mg/dL (74-106) 08/18/18 06:15 Calcium 8.1 mg/dL (8.4-10.2) L 08/18/18 06:15 Total Bilirubin 0.4 mg/dL (0.2-1.3) 08/18/18 06:15 AST 15 U/L (15-46) 08/18/18 06:15 ALT 40 U/L (13-69) 08/18/18 06:15 Alkaline Phosphatase 60 U/L (38-126) 08/18/18 06:15 Total Protein 5.0 g/dL (6.3-8.2) L 08/18/18 06:15 Albumin 2.6 g/dL (3.5-5.0) L 08/18/18 06:15 Urine Color Yellow (YELLOW) 08/16/18 18:42 Urine Appearance Cloudy (CLEAR) 08/16/18 18:42 Urine pH 7.5 (5.0 - 8.0) 08/16/18 18:42 Ur Specific [place] 1.020 (1.010-1.030) 08/16/18 18:42 Urine Protein 1+ mg/dL (NEGATIVE) H 08/16/18 18:42 Urine Ketones Negative mg/dL (NEGATIVE) 08/16/18 18:42 Urine Occult Blood 1+ (NEGATIVE) H 08/16/18 18:42 Urine Nitrite Negative (NEGATIVE) 08/16/18 18:42 Urine Bilirubin Negative (NEGATIVE) 08/16/18 18:42 Urine Urobilinogen 0.2 Eu (0.2-1.0) 08/16/18 18:42 Ur Leukocyte Esterase Negative (NEGATIVE) 08/16/18 18:42 Urine Glucose Negative mg/dL (NEGATIVE) 08/16/18 18:42 Assessment/Plan - Assessment/Plan (1) Left lower lobe pneumonia Status: Acute Current Visit: Yes Qualifiers: Pneumonia type: due to unspecified organism Qualified Code(s): J18.1 - Lobar pneumonia, unspecified organism Assessment: with recurrent effusion (2) Pleural effusion Status: Acute Current Visit: Yes Assessment: CT chest today, may need to refer back to [place] for thorascentesis depending on findings (3) Atrial fibrillation Status: Acute Current Visit: Yes Assessment: On warfarin Plan: Increased warfarin to 3 mg daily today (4) Squamous cell carcinoma of left lung Status: Acute Current Visit: Yes (5) Renal insufficiency Status: Acute Current Visit: Yes Assessment: Stable (6) Congestive heart failure Status: Acute Current Visit: Yes (7) CAD (coronary artery disease), [place] coronary artery Status: Acute Current Visit: Yes (8) Hypothyroidism Status: Acute Current Visit: Yes Qualifiers: Hypothyroidism type: acquired Qualified Code(s): E03.9 - Hypothyroidism, unspecified
--- NOTE | 2018-09-01 16:40 | Diagnostic Imaging Report ---
SOPHY GODINEZ [facility] [address] [facility] [address] [place] [id number] Report Submission Date: Sep 01, 2018 3:59:26 PM CDT Patient Study Name: JLUIS COVINGTON Date: Sep 01, 2018 3:07:22 PM CDT Modality Type: CT\SR Gender: M Description: CT CHEST W/O CONTRAST : 38 Institution: [facility] Physician: SOPHY GODINEZ CT chest without contrast History: Pneumonia Technique: Helically acquired images were obtained from the thoracic inlet to the adrenal glands without IV contrast. Findings: The thoracic aorta is atherosclerotic but not aneurysmal. There is old granulomatous disease of the spleen. The adrenal glands are not visualized in their entirety but the visualized portions appear normal. There is a small right pleural effusion. Emphysematous findings are present of the right lung and there is a slight region of infiltrate laterally at the right upper lobe. With regard to the left hemithorax, there is shift of mediastinal structures toward the left. Calcified left hilar lymph nodes are present. There is a moderate-sized left pleural effusion. Patchy areas of airspace disease are present throughout the left lung but the region of densest consolidation is at the left lung base. No bronchial obstruction is identified. No osseous abnormalities are noted. Impression: Old granulomatous disease. Small right pleural effusion. Emphysematous findings. Moderate-sized left pleural effusion with diffuse airspace disease of the left lung most densely consolidative at the left lung base. Small lateral right upper lobe infiltrate. Electronically signed on Sep 01, 2018 3:59:26 PM CDT by: Hui URIBE
[2018-09-01] MEDS: WARFARIN SODIUM 1 MG TABLET PO SCH (17:51)
[2018-09-01] MEDS: TAMSULOSIN HCL 0.4 MG CAP.ER.24H PO SCH (17:52)
[2018-09-01] MEDS: WARFARIN SODIUM 2.5 MG TABLET PO SCH (17:59)
[2018-09-01] MEDS ORDERED: WARFARIN SODIUM 2.5 MG TABLET PO SCH (18:00)
[2018-09-01] MEDS: SIMVASTATIN 20 MG TABLET PO SCH (20:07)
[2018-09-01] MEDS: SALINE FLUSH 10 ML DISP.SYRIN IV SCH (20:09)
[2018-09-02] MEDS: IPRATROPIUM/ALBUTEROL SULFATE 3 ML AMPUL.NEB NEB PRN (03:37)
[2018-09-02] MEDS: PANTOPRAZOLE SODIUM 40 MG TABLET PO SCH (06:08)
[2018-09-02] MEDS: LEVOTHYROXINE SODIUM 25 MCG TABLET PO SCH (06:08)
[2018-09-02] MEDS: ISOSORBIDE MONONITRATE 30 MG TAB.ER.24H PO SCH (10:18)
[2018-09-02] MEDS: Non-Formulary 1 EACH PO SCH ×3 (10:19→17:20)
[2018-09-02] MEDS: ASPIRIN 81 MG CHEW TAB PO SCH (10:19)
[2018-09-02] MEDS: CARVEDILOL 6.25 MG TABLET PO SCH (10:19)
[2018-09-02] MEDS: ALLOPURINOL 100 MG TABLET PO SCH (10:19)
[2018-09-02] MEDS: HYDRALAZINE HCL 25 MG TABLET PO SCH ×3 (10:20→17:20)
[2018-09-02] MEDS: FUROSEMIDE 20 MG TABLET PO SCH (10:20)
[2018-09-02] MEDS: POLYETHYLENE GLYCOL 3350 17 GM POWD.PACK PO SCH (10:21)
[2018-09-02] MEDS: SALINE FLUSH 10 ML DISP.SYRIN IV SCH ×2 (10:21→20:01)
[2018-09-02] MEDS: LORATADINE/PSEUDOEPHEDRINE 1 EACH TAB.ER.12H PO SCH ×2 (10:28→20:01)
[2018-09-02] MEDS ORDERED: LEVOFLOXACIN 500MG/D5W 100ML 100 ML IV ONE (13:01)
[2018-09-02] MEDS: LEVOFLOXACIN 500MG/D5W 100ML 500 MG in PREMIX BAG 1 BAG IV SCH (13:05)
[2018-09-02] MEDS: TAMSULOSIN HCL 0.4 MG CAP.ER.24H PO SCH (17:19)
[2018-09-02] MEDS: SIMVASTATIN 20 MG TABLET PO SCH (20:01)
[2018-09-03] MEDS: IPRATROPIUM/ALBUTEROL SULFATE 3 ML AMPUL.NEB NEB PRN (01:33)
[2018-09-03] MEDS: PANTOPRAZOLE SODIUM 40 MG TABLET PO SCH (06:02)
[2018-09-03] MEDS: LEVOTHYROXINE SODIUM 25 MCG TABLET PO SCH (06:02)
[2018-09-03] MEDS: ASPIRIN 81 MG CHEW TAB PO SCH (09:34)
[2018-09-03] MEDS: CARVEDILOL 6.25 MG TABLET PO SCH (09:34)
[2018-09-03] MEDS: FUROSEMIDE 20 MG TABLET PO SCH (09:34)
[2018-09-03] MEDS: ISOSORBIDE MONONITRATE 30 MG TAB.ER.24H PO SCH (09:34)
[2018-09-03] MEDS: HYDRALAZINE HCL 25 MG TABLET PO SCH ×3 (09:35→18:18)
[2018-09-03] MEDS: ALLOPURINOL 100 MG TABLET PO SCH (09:35)
[2018-09-03] MEDS: LORATADINE/PSEUDOEPHEDRINE 1 EACH TAB.ER.12H PO SCH (09:35)
[2018-09-03] MEDS: SALINE FLUSH 10 ML DISP.SYRIN IV SCH (09:36)
[2018-09-03] MEDS: Non-Formulary 1 EACH PO SCH ×3 (11:32→18:10)
[2018-09-03] MEDS: POLYETHYLENE GLYCOL 3350 17 GM POWD.PACK PO SCH (11:34)
[2018-09-03] MEDS ORDERED: LEVOFLOXACIN 500MG/D5W 100ML 100 ML IV ONE (12:55)
[2018-09-03] MEDS: LEVOFLOXACIN 500MG/D5W 100ML 500 MG in PREMIX BAG 1 BAG IV SCH (13:19)
[2018-09-03] MEDS ORDERED: INFLUENZA VACCINE/PF 60 MCG/0.5 ML DISP.SYRIN IM ONE (17:42)
[2018-09-03] MEDS: WARFARIN SODIUM 1 MG TABLET PO SCH (18:07)
[2018-09-03] MEDS: TAMSULOSIN HCL 0.4 MG CAP.ER.24H PO SCH (18:09)
[2018-09-03 19:16] VITALS: BP 105/50
--- NOTE | 2018-09-08 11:02 | Discharge Summary ---
DATE OF ADMISSION: August 11, 2018 DATE OF DISCHARGE: September 03, 2018 DIAGNOSES ON THIS HOSPITALIZATION: 1. Left lower lobe pneumonia. 2. Left-sided pulmonary effusion. 3. Chronic atrial fibrillation. 4. Atherosclerotic coronary vascular disease. 5. Congestive heart failure. 6. Hypertension. 7. Gastroesophageal reflux disease. 8. Chronic renal insufficiency. 9. Anticoagulation. SUMMARIZATION OF ADMISSION HISTORY AND PHYSICAL: This 77-year-old male was admitted from [facility] after admission there on August 01, 2018, and discharged on the 11 of August after being admitted initially for treatment of left lower lobe pneumonia. He was noted to have a large effusion at that time and underwent thoracentesis which proved to be transudative. Cytologies, as far as what I have been able to see in the records, were negative for any malignancy, although he does have a history of left-sided squamous cell carcinoma which is endobronchial. He was initially treated at [facility] with Zosyn and Vancomycin and then discharged to our facility on cefuroxime 500 mg p.o. b.i.d. with a steroid taper of 40 mg for 3 days, 10 mg for 3 days, and then stop. He is currently off of his prednisone. HOSPITAL COURSE: He undertook physical therapy and actually responded pretty well to physical therapy and got gradually stronger, but his pulmonary reserve significantly limited him. He was noted to have a fever and became somewhat hypoxic on September 01 and as a result, a chest x-ray was done that showed a left lower lobe pneumonia. A follow-up CT showed a moderate-sized effusion and confirmed pneumonia. He was started on levofloxacin 500 mg daily. He will be discharged on that. His INR was a little bit difficult to manage while he was here. He was discharged on 3 mg of warfarin daily. On discharge, his INR was 1.74. He is discharged then to home with home health specifically with [facility] to do his home health on the following medications. MEDICATIONS ON DISCHARGE: 1. Warfarin 3 mg p.o. daily. 2. Aspirin 81 mg daily. 3. Carvedilol 6.25 mg p.o. daily. 4. Lasix 20 mg p.o. daily. 5. Hydralazine 12.5 mg p.o. daily. 6. Imdur 30 mg p.o. daily. 7. Levofloxacin 500 mg p.o. daily. 8. Levothyroxine 50 mcg p.o. daily. 9. Claritin D 1 p.o. every 12 hours. 10. Protonix 40 mg daily. 11. MiraLAX 17 grams daily. 12. Simvastatin 20 mg daily. 13. Flomax 0.4 mg p.o. daily. DISCHARGE INSTRUCTIONS: 1. He will follow up tomorrow with Dr. Solares as scheduled. 2. Follow up with Dr. Bazan on Friday as scheduled. 3. Home health on discharge with [facility]. CONDITION ON DISCHARGE: Discharged to home in improved condition. JOJO
== END 2018-09-03 19:00 | disposition home or self-care (01) | DRG 190 ==
LOC: SOUTH 15:24
PROVIDERS: ADMIT Family Medicine; ATTEND Family Medicine
DX: J44.0 Chronic obstructive pulmonary disease with (acute) lower respiratory infection (principal); J18.9 Pneumonia, unspecified organism; I48.91 Unspecified atrial fibrillation; I25.10 Atherosclerotic heart disease of native coronary artery without angina pectoris; I10 Essential (primary) hypertension; I25.2 Old myocardial infarction; I25.5 Ischemic cardiomyopathy; E78.5 Hyperlipidemia, unspecified
CPT/HCPCS: 36415; 71046; 71250; 80053; 81002; 85025; 85610; 90656; 94640; 94760; J1956; J7512; S1016

== ENCOUNTER 2018-11-02 08:11 | Outpatient (CLI) | payer MEDICARE, OTHER | END 2018-11-02 08:12 | LOC: LAB 08:11 | PROVIDERS: ATTEND Internal Medicine Cardiovascular Disease | DX: Z79.01 Long term (current) use of anticoagulants (principal) | CPT/HCPCS: 36415; 85610 ==

== ENCOUNTER 2018-11-09 08:39 | Outpatient (CLI) | payer MEDICARE, OTHER | END 2018-11-09 08:40 | LOC: LAB 08:39 | PROVIDERS: ATTEND Internal Medicine Cardiovascular Disease | DX: Z79.01 Long term (current) use of anticoagulants (principal) | CPT/HCPCS: 36415; 85610 ==

== ENCOUNTER 2018-11-16 12:40 | Outpatient (CLI) | payer MEDICARE, OTHER | END 2018-11-16 12:45 | disposition home or self-care (01) | LOC: LAB 12:40 | PROVIDERS: ATTEND Internal Medicine Cardiovascular Disease | DX: Z79.01 Long term (current) use of anticoagulants (principal) | CPT/HCPCS: 36415; 85610 ==

== ENCOUNTER 2018-12-10 15:21 | Emergency (ER) | payer MEDICARE, OTHER ==
--- NOTE | 2018-12-10 15:32 | ED Physician Documentation ---
General Adult - HISTORIAN Historian: patient - HPI Stated Complaint: nose bleed Chief Complaint: Epistaxis Onset: minutes (45) Timing: still present Severity: mild Further Comments: yes (He had a stent placed and is now on what his believes is two blood thinners so he did sneeze and blow his nose several times when he started to have a nose bleed. States he has nose bleeds from time to time but this was worrisome due to the blood thinner issue) - ROS CONST: no problems - PAST HX Past History: hypertension Surgeries/Procedures: cardiac stent Immunizations: UTD Allergies/Adverse Reactions: Allergies Allergy/AdvReac Type Severity Reaction Status Date / Time iodine Allergy Severe Anaphylaxis Verified 12/10/18 16:16 Home Medications: Ambulatory Orders Medication Instructions Recorded Aspirin EC [Ecotrin] 1 tab PO DAILY 11/12/14 Carvedilol [Coreg] 6.25 mg PO BID 11/12/14 Isosorbide Mononitrate [Imdur] 60 mg PO DAILY 11/12/14 Levothyroxine Sodium [Synthroid] 1 tab PO DAILY 11/12/14 Omeprazole 1 tab PO DAILY 11/12/14 Allopurinol 100 mg PO D 11/12/15 Atorvastatin Calcium 10 mg PO D 11/12/15 Furosemide [Lasix] 20 mg PO DAILY 08/11/18 Ipratropium/Albuterol Sulfate 3 ml PO Q6 08/11/18 [Iprat-Albut 0.5-3(2.5) mg/3 ml] predniSONE [Deltasone] 20 mg PO DAILY 08/11/18 Clopidogrel Bisulfate [Plavix] 1 tab PO DAILY 12/10/18 Furosemide [Lasix] 1 tab PO DAILY 12/10/18 Rivaroxaban [Xarelto] 1 tab PO DAILY 12/10/18 - SOCIAL HX Smoking History: non-smoker Alcohol Use: none Drug Use: none - FAMILY HX Family History: No - VITAL SIGNS Vital Signs: Vital Signs Temp Pulse Resp BP Pulse Ox 105/50 09/03/18 17:48 - REVIEWED ASSESSMENTS Nursing Assessment Reviewed: Yes Vitals Reviewed: Yes Progress - Progress Progress: 1630: small amount of blood from nose in a drip fashion. 15 min of pressure held. another afrin spray given DG 1705: very small amount of blood still from nose one spray afrin given in left nare DG 1714: no drip noted. Will monitor DG 1714: Spouse did discuss the issue with Dr Quiles and med orders for tonight and tomorrow given DG 1730: No further bleeding will discharge home with instructions DG General Adult Physical Exam - PHYSICAL EXAM GENERAL APPEARANCE: no distress EENT: eye inspection normal, no signs of dehydration, other (mild amount of bleeding noted from left nare ) NECK: normal inspection RESPIRATORY: no resp distress CVS: reg rate & rhythm, heart sounds normal ABDOMEN: soft, no distension, non-tender SKIN: warm/dry, normal color EXTREMITIES: non-tender, normal range of motion, no evidence of injury, no edema NEURO: oriented X3 Discharge Clincal Impression: Epistaxis Referrals: Cristina Worrell PA [Primary Care Provider] - 2 Days Comments: 1. DO NOT pick, blow or sniff nose if possible 2. Hold direct pressure with none of the above for any further bleeding 3. Notify Dr Quiles of any issues or PCP 4. Return to ER for any concerns Condition: Stable Disposition: 01 HOME, SELF-CARE Decision to Admit: NO Date of Decison to Admit: 12/10/18 Decision Time: 17:30
[2018-12-10] MEDS ORDERED: OXYMETAZOLINE HCL 0.05% NASAL SPRAY NS ONE (15:48)
[2018-12-10 16:03] LABS: BASOPHILS % 0.4 (0.0-1.5); MEAN CORPUSCULAR HEMOGLOBIN 32.1 pg (28.0-34.0); MONOCYTES % 8.7 % (0.0-11.0); NEUTROPHILS # 7.8 # k/uL (1.4-7.7)
[2018-12-10 16:15] VITALS: BP 128/64
== END 2018-12-10 17:29 | disposition home or self-care (01) ==
LOC: ED 15:21
DX: R04.0 Epistaxis (principal); Z79.01 Long term (current) use of anticoagulants
CPT/HCPCS: 36415; 80053; 85025; 85610; 99282; 99283

== ENCOUNTER 2019-01-19 07:57 | Outpatient (CLI) | payer MEDICARE, OTHER ==
[2019-01-19 08:12] LABS: MEAN CORPUSCULAR HEMOGLOBIN 30.8 pg (28.0-34.0)
[2019-01-19 08:13] LABS: BASOPHILS % 0.5 (0.0-1.5); EOSINOPHILS % 1.1 % (0.0-6.8); MONOCYTES % 10.2 % (0.0-11.0); NEUTROPHILS # 5.5 # k/uL (1.4-7.7)
[2019-01-19 09:17] LABS: eGFR (Non-African) 25
== END 2019-01-19 08:00 ==
LOC: LAB 07:57
PROVIDERS: ATTEND Internal Medicine Nephrology
DX: E11.65 Type 2 diabetes mellitus with hyperglycemia (principal); N18.3 Chronic kidney disease, stage 3 (moderate); I50.9 Heart failure, unspecified; E78.2 Mixed hyperlipidemia; I12.9 Hypertensive chronic kidney disease with stage 1 through stage 4 chronic kidney disease, or unspecified chronic kidney disease; I25.10 Atherosclerotic heart disease of native coronary artery without angina pectoris; I10 Essential (primary) hypertension; E03.9 Hypothyroidism, unspecified; Z90.5 Acquired absence of kidney; E79.0 Hyperuricemia without signs of inflammatory arthritis and tophaceous disease; C34.10 Malignant neoplasm of upper lobe, unspecified bronchus or lung
CPT/HCPCS: 36415; 80053; 80061; 84550; 85025